=== PATIENT | female | born 1975 | race Two or more races ===

== ENCOUNTER 2021-06-03 16:32 | Emergency (ER) | payer MEDICAID ==
[~2021-06-03] VITALS: Ht 154.9 cm; Wt 77.1 kg
[2021-06-03 21:02] VITALS: BP 120/85
== END 2021-06-03 21:19 | disposition home or self-care (01) ==
LOC: ER 16:32
DX: R07.0 Pain in throat (principal); R13.10 Dysphagia, unspecified; T36.95XA Adverse effect of unspecified systemic antibiotic, initial encounter; E66.9 Obesity, unspecified; G43.909 Migraine, unspecified, not intractable, without status migrainosus; Z68.32 Body mass index [BMI] 32.0-32.9, adult; Y92.89 Other specified places as the place of occurrence of the external cause
CPT/HCPCS: 70490

== ENCOUNTER 2023-05-21 09:27 | Emergency (ER) | payer MEDICAID ==
[~2023-05-21] VITALS: Ht 154.9 cm; Wt 80.9 kg
[~2023-05-21 09:27] MED LIST: CYCL-837 PO; EPIN0.3I24 IJ
[2023-05-21 10:11] VITALS: PULSE 100; RESP 14; O2SAT 94
[2023-05-21 10:25] LABS: Basophils # (auto) 0.1 10 ^3/uL (0-0.2); Basophils % (auto) 0.5 % (0.0-2.0); Eosinophils # (auto) 0.1 10 ^3/uL (0-0.8); Eosinophils % (auto) 1.5 % (0.0-7.0); Hematocrit 47.3 % (36.0-46.0); Hemoglobin 15.7 g/dL (12.2-16.2); Lymphocytes # (auto) 2.5 10 ^3/uL (0.4-5.4); Lymphocytes % (auto) 26.4 % (10.0-50.0); Mean Corpuscular Hemoglobin 27.5 pg (28.0-32.0); Mean Corpuscular Hgb Conc. 33.3 g/dL (32.0-36.0); Mean Corpuscular Volume 82.7 fL (80.0-100.0); Monocytes # (auto) 0.6 10 ^3/uL (0-1.3); Monocytes % (auto) 6.2 % (0.0-12.0); Neutrophils # (auto) 6.1 10 ^3/uL (1.6-8.6); Neutrophils % (auto) 65.4 % (37.0-80.0); Red Blood Cells 5.72 10^6/uL (4.0-5.20); White Blood Cell 9.3 10^3/uL (4.4-10.8)
[2023-05-21 10:29] LABS: INR 1.04 (0.9-1.15); Partial Thromboplastin Time 29.8 SEC (24.5-34.5); Prothrombin Time 10.9 sec (9.3-11.8)
[2023-05-21 10:52] LABS: Alanine Aminotransferase 14 U/L (7-40); Albumin 4.8 g/dL (3.2-4.8); Alkaline Phosphatase 69 U/L (46-116); Anion Gap 7 (5-15); Aspartate Aminotransferase 18 U/L (13-40); BUN/Creatinine Ratio 10.3 (10.0-20.0); Blood Urea Nitrogen 11 mg/dL (9-23); Calcium 10.1 mg/dL (8.5-10.1); Carbon Dioxide 26 mmol/L (20-30); Chloride 103 mmol/L (98-107); Glucose 96 mg/dL (74-106); Potassium 3.8 mmol/L (3.5-5.1); Sodium 136 mmol/L (136-145)
[2023-05-21 10:53] LABS: Bilirubin, Total 0.6 mg/dL (0.2-1.0); Total Protein 7.9 g/dL (5.7-8.2)
[2023-05-21 11:26] LABS: Urine Bacteria NONE SEEN /hpf (None Seen); Urine Blood 3+ /uL (Negative); Urine Clarity Clear (Clear); Urine Color Yellow (Yellow); Urine Mucus FEW (None Seen); Urine Protein, UAD 1+ (Negative); Urine Specific Gravity 1.015 (1.001-1.035); Urine Urobilinogen Normal (Negative); Urine WBC 11 /hpf (0 - 5); Urine pH 5.5 (5.0-8.0)
[2023-05-21] MEDS ORDERED: NITR-87 PO (11:58)
[2023-05-21 12:00] VITALS: BP 110/79; PULSE 87; RESP 10; O2SAT 94
== END 2023-05-21 12:19 | disposition home or self-care (01) ==
LOC: ER 09:27
DX: N93.9 Abnormal uterine and vaginal bleeding, unspecified (principal); D25.9 Leiomyoma of uterus, unspecified; Z86.2 Personal history of diseases of the blood and blood-forming organs and certain disorders involving the immune mechanism; Z90.49 Acquired absence of other specified parts of digestive tract; Z79.899 Other long term (current) drug therapy; Z88.1 Allergy status to other antibiotic agents; Z88.8 Allergy status to other drugs, medicaments and biological substances
CPT/HCPCS: 36415; 76830; 76856; 80053; 81001; 85025; 85610; 85730; 86850; 86900; 86901

== ENCOUNTER 2023-08-07 14:08 | Emergency (ER) | payer MEDICAID ==
[~2023-08-07] VITALS: Ht 154.9 cm; Wt 77.5 kg
[~2023-08-07 14:08] MED LIST changes: +NITR-87 PO
[2023-08-07 14:21] VITALS: BP 154/73; PULSE 97; RESP 18; O2SAT 99
[2023-08-07 14:27] LABS: Basophils # (auto) 0.1 10 ^3/uL (0-0.2); Basophils % (auto) 0.7 % (0.0-2.0); Eosinophils # (auto) 0.1 10 ^3/uL (0-0.8); Eosinophils % (auto) 1.7 % (0.0-7.0); Hematocrit 44.4 % (36.0-46.0); Hemoglobin 14.5 g/dL (12.2-16.2); Lymphocytes # (auto) 2.1 10 ^3/uL (0.4-5.4); Lymphocytes % (auto) 23.8 % (10.0-50.0); Mean Corpuscular Hemoglobin 26.9 pg (28.0-32.0); Mean Corpuscular Hgb Conc. 32.7 g/dL (32.0-36.0); Mean Corpuscular Volume 82.4 fL (80.0-100.0); Monocytes # (auto) 0.5 10 ^3/uL (0-1.3); Monocytes % (auto) 5.5 % (0.0-12.0); Neutrophils % (auto) 68.3 % (37.0-80.0); Nucleated Red Blood Cells % 0.3 %; Red Blood Cells 5.39 10^6/uL (4.0-5.20); Red Cell Distribution Width 16.1 % (11.8-14.3); White Blood Cell 8.7 10^3/uL (4.4-10.8)
[2023-08-07 14:56] LABS: Alanine Aminotransferase 12 U/L (7-40); Albumin 4.5 g/dL (3.2-4.8); Alkaline Phosphatase 68 U/L (46-116); Anion Gap 7 (5-15); Aspartate Aminotransferase 14 U/L (13-40); BUN/Creatinine Ratio 10.5 (10.0-20.0); Bilirubin, Total 0.5 mg/dL (0.2-1.0); Blood Urea Nitrogen 13 mg/dL (9-23); Calcium 9.4 mg/dL (8.7-10.4); Carbon Dioxide 27 mmol/L (20-30); Chloride 105 mmol/L (98-107); Glucose 112 mg/dL (74-106); Potassium 3.9 mmol/L (3.5-5.1); Sodium 139 mmol/L (136-145); Total Protein 7.6 g/dL (5.7-8.2)
== END 2023-08-07 18:12 | disposition home or self-care (01) ==
LOC: ER 14:08
DX: R07.89 Other chest pain (principal); K21.9 Gastro-esophageal reflux disease without esophagitis; Z90.49 Acquired absence of other specified parts of digestive tract; Z98.51 Tubal ligation status; Z88.1 Allergy status to other antibiotic agents
CPT/HCPCS: 36415; 71045; 80053; 84484; 85025; 85379; 93005

== ENCOUNTER 2023-10-23 09:20 | Emergency (ER) | payer SELFPAY ==
[~2023-10-23] VITALS: Ht 154.9 cm; Wt 84.3 kg
[2023-10-23 10:21] LABS: Urine Bacteria None Seen /hpf (None Seen)
[2023-10-23 10:28] LABS: Urine Blood 2+ /uL (Negative); Urine Clarity Turbid (Clear); Urine Color Colorless (Yellow); Urine Mucus FEW (None Seen); Urine Protein, UAD 2+ (Negative); Urine Specific Gravity 1.015 (1.001-1.035); Urine Urobilinogen Normal (Negative); Urine WBC 537 /hpf (0 - 5); Urine WBC Clumps PRESENT /hpf (None Seen)
[2023-10-23] MEDS ORDERED: KETOROLAC TROMETH 60MG/2ML VIAL IM ONE (11:00)
[2023-10-23] MEDS: cefTRIAXone SOD 1,000 MG VL IM ONE (11:20)
[2023-10-23] MEDS: HYDROcodone-ACET 10/325MG TAB PO ONE (11:21)
[2023-10-23 11:43] VITALS: BP 120/65; PULSE 102; RESP 18; TEMP 98; O2SAT 95
[2023-10-23] MEDS ORDERED: TRAM-626 PO (11:49)
[2023-10-23] MEDS ORDERED: BACDST PO (11:49)
== END 2023-10-23 11:54 | disposition home or self-care (01) ==
LOC: ER 09:20
DX: N39.0 Urinary tract infection, site not specified (principal); Z30.431 Encounter for routine checking of intrauterine contraceptive device; K21.9 Gastro-esophageal reflux disease without esophagitis; Z86.2 Personal history of diseases of the blood and blood-forming organs and certain disorders involving the immune mechanism; Z90.49 Acquired absence of other specified parts of digestive tract; Z79.899 Other long term (current) drug therapy; Z88.1 Allergy status to other antibiotic agents; Z88.8 Allergy status to other drugs, medicaments and biological substances
CPT/HCPCS: 72170; 81001; 96372; 99284; J0696

== ENCOUNTER 2023-12-31 18:48 | Emergency (ER) | payer MEDICAID, OTHER ==
[~2023-12-31] VITALS: Ht 154.9 cm; Wt 84.2 kg
[~2023-12-31 18:48] MED LIST changes: +BACDST PO; +TRAM-626 PO
[2023-12-31 20:23] LABS: Basophils # (auto) 0 10 ^3/uL (0-0.2); Basophils % (auto) 0.5 % (0.0-2.0); Eosinophils # (auto) 0.2 10 ^3/uL (0-0.8); Eosinophils % (auto) 2.4 % (0.0-7.0); Lymphocytes # (auto) 2.2 10 ^3/uL (0.4-5.4); Lymphocytes % (auto) 27.5 % (10.0-50.0); Mean Corpuscular Hemoglobin 27.2 pg (28.0-32.0); Mean Corpuscular Hgb Conc. 33.2 g/dL (32.0-36.0); Mean Corpuscular Volume 81.8 fL (80.0-100.0); Monocytes # (auto) 0.5 10 ^3/uL (0-1.3); Monocytes % (auto) 6.7 % (0.0-12.0); Neutrophils % (auto) 62.9 % (37.0-80.0); Nucleated Red Blood Cells % 0.1 %; Red Blood Cells 5.14 10^6/uL (4.0-5.20); Red Cell Distribution Width 16.1 % (11.8-14.3); White Blood Cell 7.9 10^3/uL (4.4-10.8)
[2023-12-31 20:36] LABS: Urine Bacteria FEW /hpf (None Seen); Urine Blood TRACE /uL (Negative); Urine Clarity Clear (Clear); Urine Color Light-Yellow (Yellow); Urine Hyaline Cast FEW /lpf (0 - 2); Urine Mucus FEW (None Seen); Urine Protein, UAD TRACE (Negative); Urine Specific Gravity 1.013 (1.001-1.035); Urine Urobilinogen Normal (Negative); Urine WBC 2 /hpf (0 - 5)
[2023-12-31 20:45] LABS: Alanine Aminotransferase 19 U/L (7-40); Albumin 4.3 g/dL (3.2-4.8); Alkaline Phosphatase 77 U/L (46-116); Anion Gap 7 (5-15); Aspartate Aminotransferase 12 U/L (13-40); BUN/Creatinine Ratio 12.4 (10.0-20.0); Bilirubin, Total 0.4 mg/dL (0.2-1.0); Blood Urea Nitrogen 14 mg/dL (9-23); Calcium 9.7 mg/dL (8.7-10.4); Carbon Dioxide 27 mmol/L (20-30); Chloride 105 mmol/L (98-107); Glucose 94 mg/dL (74-106); Sodium 139 mmol/L (136-145); Total Protein 6.8 g/dL (5.7-8.2)
[2023-12-31] MEDS: FAMOTIDINE 20 MG TAB PO ONE (21:15)
[2023-12-31] MEDS: MAALOX PLUS or MAALOX 30 ML PO ONE (21:15)
[2023-12-31] MEDS: ACETAMINOPHEN 325 MG TAB PO ONE (21:21)
[2023-12-31 21:23] VITALS: BP 116/80; PULSE 83; RESP 18; TEMP 98.5; O2SAT 98
== END 2023-12-31 23:41 | disposition home or self-care (01) ==
LOC: ER 18:48
DX: R07.89 Other chest pain (principal); R10.11 Right upper quadrant pain; M54.9 Dorsalgia, unspecified; F41.9 Anxiety disorder, unspecified; K21.9 Gastro-esophageal reflux disease without esophagitis; Z88.1 Allergy status to other antibiotic agents; Z88.6 Allergy status to analgesic agent; Z90.49 Acquired absence of other specified parts of digestive tract; Z98.51 Tubal ligation status
CPT/HCPCS: 36415; 71045; 80053; 81001; 84484; 85025; 93005

== ENCOUNTER 2024-05-01 10:47 | Emergency (ER) | payer SELFPAY ==
[~2024-05-01] VITALS: Ht 154.9 cm; Wt 83.7 kg
[2024-05-01 11:05] LABS: Basophils # (auto) 0.1 10 ^3/uL (0-0.2); Basophils % (auto) 0.9 % (0.0-2.0); Eosinophils # (auto) 0.2 10 ^3/uL (0-0.8); Eosinophils % (auto) 1.9 % (0.0-7.0); Hematocrit 42.6 % (36.0-46.0); Hemoglobin 14.2 g/dL (12.2-16.2); Lymphocytes # (auto) 2.3 10 ^3/uL (0.4-5.4); Lymphocytes % (auto) 26.4 % (10.0-50.0); Mean Corpuscular Hemoglobin 26.9 pg (28.0-32.0); Mean Corpuscular Hgb Conc. 33.3 g/dL (32.0-36.0); Mean Corpuscular Volume 80.7 fL (80.0-100.0); Monocytes # (auto) 0.6 10 ^3/uL (0-1.3); Neutrophils # (auto) 5.5 10 ^3/uL (1.6-8.6); Neutrophils % (auto) 63.8 % (37.0-80.0); Platelet Count (auto) 331 10^3/uL (140-450); Red Blood Cells 5.28 10^6/uL (4.0-5.20); Red Cell Distribution Width 15.6 % (11.8-14.3); White Blood Cell 8.6 10^3/uL (4.4-10.8)
[2024-05-01] MEDS: ASPirin 81 mg TAB PO ONE (11:09)
--- NOTE | 2024-05-01 11:10 | ED.PDOC ---
HPI Comments 48F presents to the ER w/ no prior Hx associated to the c/c of CP. Pt reports on having CP which radiated to the left arm last night. Pt reports the CP to have been consistent until today wit the radiating pain being to the middle of the back. Pt states the CP to be sharp as well as having N/ Dizziness. Pt notes on having a pain type of a 6/10 and took Tylenol last night as well. PMHx of Anemia, Anxiety and GERD. SHx of Cholecystectomy, BTL and Tubal Ligation. Family Hx of Cancer, DM and Heart [place]. Denies chills, fever, /V/D, SOB, or other associated symptoms, modifiers, or recent injuries at this time. Chief Complaint: Chest Pain Time Seen by MD: 11:00 Primary Care Provider: SEDA Reviewed Notes: Nurses Notes, Medications, Allergies Allergies: Coded Allergies: Amoxicillin (Verified Allergy, Unknown, 04/14/23) Azithromycin (Verified Allergy, Unknown, 12/31/23) Ketorolac Tromethamine (Verified Allergy, Unknown, 04/14/23) Home Meds Active Scripts Tramadol HCl (Tramadol HCl) 50 Mg Tab, 50 MG PO TID, #20 TAB Prov:JESSICA URIAS 10/23/23 Sulfamethoxazole W/Trimethopri (Bactrim Ds Tablet) 1 Tab Tb, 1 TAB PO BID for 10 Days, #20 TAB Prov:JESSICA URIAS 10/23/23 Nitrofurantoin Monohydrate Mac (Macrobid) 100 Mg Cap, 100 MG PO BID for 7 Days, #14 CAP Prov:HERO JACOBO MD 05/21/23 Epinephrine (Epinephrine) 0.3 Mg/0.3 Ml Inj, 0.3 MG IJ ONCE PRN, #2 INJ 0 Refills Prov:BERLIN ARECHIGA MD 10/30/21 Cyclobenzaprine Hcl (Cyclobenzaprine Hcl) 5 Mg Tab, 1 TAB PO QPM, #14 TAB 0 Refills Prov:JOSE ALEJANDRO PARADA 08/28/21 Information Source: Patient Mode of Arrival: Ambulatory Severity: Moderate Timing: Hours Duration: Since onset, Hours Prehospital treatment: None Location: Substernal Radiation: Back Quality: Sharp Onset: At Rest Cardiac Risk Factors: Family History PE Risk Factors: None History of: Similar pain in past Associated Signs and Symptoms: Back Pain Past Medical History PAST MEDICAL HISTORY: Anemia, Anxiety, GERD Surgical History: BTL, Cholecystectomy, Tubal Ligation 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 Family History Family History: Reviewed,noncontributory to illness, Family hx of DM, Family hx of Cancer, Family hx of heart [place] Social History Smoker: Non-Smoker Alcohol: Denies ETOH Use Drugs: Denies Drug Use Lives In: Home Constitutional: denies: chills, diaphoresis, fatigue, fever, malaise, sweats, weakness, others EENTM: denies: blurred vision, double vision, ear bleeding, ear discharge, ear drainage, ear pain, ear ringing, eye pain, eye redness, hearing loss, mouth pain, mouth swelling, nasal discharge, nose bleeding, nose congestion, nose pain, photophobia, tearing, throat pain, throat swelling, voice changes, others Respiratory: denies: cough, hemoptysis, orthopnea, SOB at rest, shortness of breath, SOB with excertion, stridor, wheezing, others Cardiovascular: reports: chest pain; denies: dizzy spells, diaphoresis, Dyspnea on exertion, edema, irregular heart beat, left arm pain, lightheadedness, palpitations, PND, syncope, others Gastrointestinal: denies: abdomen distended, abdominal pain, blood streaked bowels, constipated, diarrhea, dysphagia, difficulty swallowing, hematemesis, melena, nausea, poor appetite, poor fluid intake, rectal bleeding, rectal pain, vomiting, others Genitourinary: denies: abnormal vagina bleeding, burning, dyspareunia, dysuria, flank pain, frequency, hematuria, incontinence, pain, , vagina discharge, urgency, others Neurological: denies: dizziness, fainting, headache, left sided numbness, left sided weakness, numbness, paresthesia, pre-existing deficit, right sided numbness, right sided weakness, seizure, speech problems, tingling, tremors, weakness, others Musculoskeletal: reports: back pain; denies: gout, joint pain, joint swelling, muscle pain, muscle stiffness, neck pain, others Integumetry: denies: bruises, change in color, change in hair/nails, dryness, laceration, lesions, lumps, rash, wounds, others Allergic/Immunocompromised: denies: Difficulty Healing, Frequent Infections, Hives, Itching, others Hematologic/Lymphatic: denies: anemia, blood clots, easy bleeding, easy bruising, swollen glands, others Endocrine: denies: excessive hunger, excessive sweating, excessive thirst, excessive urination, flushing, intolerance to cold, intolerance to heat, unex plained weight gain, unexplained weight loss, others Psychiatric: denies: anxiety, bipolar disorder, depression, hopeless, panic disorder, schizophrenia, sleepless, suicidal, others All Other Systems: Reviewed and Negative Physical Exam General Appearance: No Apparent Distress HEENT: Normal ENT Inspection, Pharynx Normal, TMs Normal Neck: Full Range of Motion, Non-Tender, Normal, Normal Inspection Respiratory: Chest Non-Tender, Lungs Clear, No Accessory Muscle Use, No Respiratory Distress, Normal Breath Sounds Cardiovascular: No Edema, No JVD, No Murmur, No Gallop, Tachycardia Breast Exam: Deferred Gastrointestinal: No Organomegaly, Non Tender, No Pulsatile Mass, Normal Bowel Sounds, Soft Genitalia: Deferred Pelvic: Deferred Rectal: Deferred Extremities: No calf tenderness, Normal capillary refill, Normal inspection, Normal range of motion, Non-tender, No pedal edema Musculoskeletal : Apperance: Normal Neurologic: Alert, craniologist II-XII nml as Tested, No Motor Deficits, Normal Affect, Normal Mood, No Sensory Deficits Cerebellar Function: Normal Reflexes: Normal Skin: Dry, Normal Color, Warm Lymphatic: No Adenopathy EKG EKG : Pulse Rate (adult): 103 Helper: RAD Cardiac Rhythm: ST Block: None Hypertrophy: None ST: Normal Was a procedure done? Was a procedure done?: No CP Differential Dx Differential Diagnosis: Angina, RI Differential Diagnosis: CHF Differential Diagnosis: Pericarditis X-Ray, Labs, Meds, VS Vital Signs Date Time Temp Pulse Resp B/P (MAP) Pulse Ox O2 Delivery O2 Flow Rate FiO2 05/01/24 11:38 99 05/01/24 11:11 108 18 98 Room Air* 0 21 05/01/24 11:10 98.9 108 18 114/85 (95) 97 98.9 05/01/24 11:10 103 05/01/24 11:04 99.8 129 16 70/6 (27) 99 05/01/24 10:52 103 Lab Test 05/01/24 11:30 05/01/24 10:53 05/01/24 10:49 Range/Units Troponin I High Sensitivity < 3 L < 3 L </=34 ng/L White Blood Count 8.6 4.4-10.8 10^3/uL Red Blood Count 5.28 H 4.0-5.20 10^6/uL Hemoglobin 14.2 12.2-16.2 g/dL Hematocrit 42.6 36.0-46.0 % Mean Corpuscular Volume 80.7 80.0-100.0 fL Mean Corpuscular Hemoglobin 26.9 L 28.0-32.0 pg Mean Corpuscular Hemoglobin Concent 33.3 32.0-36.0 g/dL Red Cell Distribution Width 15.6 H 11.8-14.3 % Platelet Count 331 140-450 10^3/uL Mean Platelet Volume 8.1 6.9-10.8 fL Neutrophils (%) (Auto) 63.8 37.0-80.0 % Lymphocytes (%) (Auto) 26.4 10.0-50.0 % Monocytes (%) (Auto) 7.0 0.0-12.0 % Eosinophils (%) (Auto) 1.9 0.0-7.0 % Basophils (%) (Auto) 0.9 0.0-2.0 % Neutrophils # (Auto) 5.5 1.6-8.6 10 ^3/uL Lymphocytes # (Auto) 2.3 0.4-5.4 10 ^3/uL Monocytes # (Auto) 0.6 0-1.3 10 ^3/uL Eosinophils # (Auto) 0.2 0-0.8 10 ^3/uL Basophils # (Auto) 0.1 0-0.2 10 ^3/uL Nucleated Red Blood Cells 0.0 % D-Dimer, Quantitative 0.33 0.0-0.49 mg/L FEU Sodium Level 140 136-145 mmol/L Potassium Level 3.7 3.5-5.1 mmol/L Chloride Level 106 98-107 mmol/L Carbon Dioxide Level 26 20-31 mmol/L Anion Gap 8 5-15 Blood Urea Nitrogen 10 9-23 mg/dL Creatinine 1.15 H 0.550-1.02 mg/dL Glomerular Filtration Rate Calc 59 >90 mL/min BUN/Creatinine Ratio 8.7 L 10.0-20.0 Serum Glucose 127 H 74-106 mg/dL Calcium Level 9.9 8.7-10.4 mg/dL Total Bilirubin 0.5 0.2-1.0 mg/dL Aspartate Amino Transferase (AST) 13 13-40 U/L Alanine Aminotransferase (ALT) 16 7-40 U/L Alkaline Phosphatase 85 46-116 U/L Total Protein 7.5 5.7-8.2 g/dL Albumin 4.3 3.2-4.8 g/dL Urine Color Light-yellow Yellow Urine Clarity Clear Clear Urine pH 5.5 5.0-9.0 Urine Specific [place] 1.015 1.001-1.035 Urine Protein 1+ H Negative Urine Ketones Negative Negative Urine Blood 1+ H Negative /uL Urine Nitrite Negative Negative Urine Bilirubin Negative Negative Urine Urobilinogen Normal Negative mg/dL Urine Leukocyte Esterase Negative Negative /uL Urine RBC 2 0 - 4 /hpf Urine WBC 2 0 - 5 /hpf Urine Squamous Epithelial Cells Few <5 /hpf Urine Bacteria None seen None Seen /hpf Urine Glucose Normal Normal mg/dL Current Medications Medications (Trade) Dose Ordered Sig/Blade Route Start Time Stop Time Status Last Admin Aspirin 162 mg ONCE ONCE PO 05/01/24 11:15 05/01/24 11:16 DC 05/01/24 11:09 The patient was given aspirin 162 mg by mouth The chest x-ray is negative The urine test is negative The CBC and chemistry panel are within normal limits We did repeat the EKG with no change at this time The patient's troponin level x2 is negative The D-dimer is negative The patient was being discharged and will follow up with the primary care doctor The patient will return to the emergency department's the condition worsens. Images Reviewed?: Images reviewed and evaluated by me Time of 1ST Reevaluation: 11:30 Reevaluation 1ST: Unchanged Patient Education/Counseling: Diagnosis, Treatment, Prognosis, Need For Follow Up Family Education/Counseling: No Family Present Departure 1 Departure Time of Disposition: 12:15 Impression: Primary Impression: Musculoskeletal chest pain Disposition: 01 HOME / SELF CARE / HOMELESS Condition: Fair Discharged With: Self Critical Care Note Critical Care Time?: No Stability Stability form required: No Heart Score Heart Score: Heart Score Response (Comments) Value History N/A 0 EKG N/A 0 Age N/A 0 Risk Factors N/A 0 Troponin N/A 0 Total 0 I personally scribed for ODALIS,HERO B MD ([email or web address]) on 05/01/24 at 11:10. Electronically submitted by Jimbo Casey ([email or web address]). HERO JACOBO MD May 01, 2024 11:10
[2024-05-01 11:11] VITALS: PULSE 108; RESP 18; O2SAT 98
[2024-05-01 11:14] LABS: Urine Bacteria None Seen /hpf (None Seen); Urine Blood 1+ /uL (Negative); Urine Clarity Clear (Clear); Urine Color Light-Yellow (Yellow); Urine Protein, UAD 1+ (Negative); Urine Specific Gravity 1.015 (1.001-1.035); Urine Urobilinogen Normal (Negative); Urine WBC 2 /hpf (0 - 5); Urine pH 5.5 (5.0-9.0)
[2024-05-01 11:24] LABS: Alanine Aminotransferase 16 U/L (7-40); Albumin 4.3 g/dL (3.2-4.8); Alkaline Phosphatase 85 U/L (46-116); Anion Gap 8 (5-15); Aspartate Aminotransferase 13 U/L (13-40); BUN/Creatinine Ratio 8.7 (10.0-20.0); Blood Urea Nitrogen 10 mg/dL (9-23); Calcium 9.9 mg/dL (8.7-10.4); Carbon Dioxide 26 mmol/L (20-31); Chloride 106 mmol/L (98-107); Glucose 127 mg/dL (74-106); Potassium 3.7 mmol/L (3.5-5.1); Sodium 140 mmol/L (136-145)
[2024-05-01 11:25] LABS: Bilirubin, Total 0.5 mg/dL (0.2-1.0); Total Protein 7.5 g/dL (5.7-8.2)
--- NOTE | 2024-05-01 11:39 | ECG ---
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
--- NOTE | 2024-05-01 12:13 | DVH ---
CHEST RADIOGRAPH Indication:CP Technique: Single frontal view of the chest was obtained Comparison: XY CHEST PORTABLE on DOS: 12/31/23, XY CHEST PORTABLE on DOS: 08/07/23 FINDINGS: Lines and Tubes: None Lungs: No focal consolidation. Pleura: No effusion. No pneumothorax. Cardiomediastinal contours: Unremarkable Bones: No acute osseous abnormality. IMPRESSION: No acute cardiopulmonary disease.
[2024-05-01] MEDS: MECLIZINE HCL 25 MG TAB PO ONE (13:16)
--- NOTE | 2024-05-01 13:50 | DVH ---
CLINICAL INFORMATION: 48 years old, Female; dizziness. TECHNIQUE: Axial imaging was obtained through the brain without contrast. Coronal and sagittal refor matted images were obtained, reviewed, and stored. Images were reviewed in brain and bone windows. A ll CT scans at this medical facility are performed using dose modulation techniques as appropriate to a performed exam including the following: Automated exposure control was utilized; adjustment of the MA and/or KV according to patient size; and use of iterative reconstruction technique. CTDIvol = 53 mGy DLP = 863.9 mGy-cm COMPARISON: NECK WITHOUT CONTRAST on DOS: 06/03/21 FINDINGS: There is no acute intracranial hemorrhage or extraaxial fluid collection. No mass effect o r midline shift. The ventricles and sulci are within normal limits in size for age. Basal cisterns a re patent. The calvarium is unremarkable. Paranasal sinuses and mastoid air cells are clear. IMPRESSION: No CT evidence of acute intracranial abnormality.
[2024-05-01 14:02] VITALS: BP 116/80; PULSE 97; RESP 18; TEMP 98.2; O2SAT 97
--- NOTE | 2024-05-03 12:44 | ECG ---
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
== END 2024-05-01 14:01 | disposition home or self-care (01) ==
LOC: ER 10:47
DX: R07.89 Other chest pain (principal); F41.9 Anxiety disorder, unspecified; K21.9 Gastro-esophageal reflux disease without esophagitis; Z90.49 Acquired absence of other specified parts of digestive tract; Z98.51 Tubal ligation status; Z98.890 Other specified postprocedural states; Z79.899 Other long term (current) drug therapy; Z88.0 Allergy status to penicillin; Z88.1 Allergy status to other antibiotic agents
CPT/HCPCS: 36415; 70450; 71045; 80053; 81001; 84484; 85025; 85379; 93005; 99285; J8597

== ENCOUNTER 2024-07-18 08:54 | Emergency (ER) | payer OTHER ==
--- NOTE | 2024-07-18 10:00 | ED.PDOC ---
HPI Comments 48 year old female presents to the ED with a chief complaint of chest pain onset 2 days. Patient states she began experiencing chest pain 2 days ago, sharp and heavy sensation that radiates to RT arm, RT shoulder, back and neck. She also experienced 2 episodes of nausea/vomiting today. Upon ED arrival, HR 115, BP 121/91, O2 sat 94% RA. PMHx of anemia, anxiety, GERD, autoimmune disease. Denies shortness of breath, cough, congestion, dizziness, headache, blurry vision. No o ther symptoms or modifying factors present at this time. Time Seen by MD: 09:21 Primary Care Provider: NONE Reviewed Notes: Medications, Allergies Allergies: Coded Allergies: Amoxicillin (Verified Allergy, Unknown, 04/14/23) Azithromycin (Verified Allergy, Unknown, 12/31/23) Ketorolac Tromethamine (Verified Allergy, Unknown, 04/14/23) Home Meds Active Scripts Tramadol HCl (Tramadol HCl) 50 Mg Tab, 50 MG PO TID, #20 TAB Prov:JESSICA URIAS 10/23/23 Sulfamethoxazole W/Trimethopri (Bactrim Ds Tablet) 1 Tab Tb, 1 TAB PO BID for 10 Days, #20 TAB Prov:JESSICA URIAS 10/23/23 Nitrofurantoin Monohydrate Mac (Macrobid) 100 Mg Cap, 100 MG PO BID for 7 Days, #14 CAP Prov:HERO JACOBO MD 05/21/23 Epinephrine (Epinephrine) 0.3 Mg/0.3 Ml Inj, 0.3 MG IJ ONCE PRN, #2 INJ 0 Refills Prov:BERLIN ARECHIGA MD 10/30/21 Cyclobenzaprine Hcl (Cyclobenzaprine Hcl) 5 Mg Tab, 1 TAB PO QPM, #14 TAB 0 Refills Prov:JOSE ALEJANDRO PARADA 08/28/21 Information Source: Patient Mode of Arrival: Ambulatory Severity: Moderate Timing: Days Duration: Since onset Prehospital treatment: None Location: Chest (L) Radiation: Back, Neck, Shoulder (R), Arm (R) Quality: Sharp, Heavy Cardiac Risk Factors: None PE Risk Factors: None History of: None Past Medical History PAST MEDICAL HISTORY: Anemia, Anxiety, GERD Past Medical History (Other): autoimmune diease Surgical History: BTL, Cholecystectomy, Tubal Ligation 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 STORE History Family History Family History: Reviewed,noncontributory to illness, Family hx of DM, Family hx of Cancer, Family hx of heart [place] Social History Smoker: Non-Smoker Alcohol: Denies ETOH Use Drugs: Denies Drug Use Lives In: Home Constitutional: denies: chills, diaphoresis, fatigue, fever, malaise, sweats, weakness, others EENTM: denies: blurred vision, double vision, ear bleeding, ear discharge, ear drainage, ear pain, ear ringing, eye pain, eye redness, hearing loss, mouth pain, mouth swelling, nasal discharge, nose bleeding, nose congestion, nose pain, photophobia, tearing, throat pain, throat swelling, voice changes, others Respiratory: denies: cough, hemoptysis, orthopnea, SOB at rest, shortness of breath, SOB with excertion, stridor, wheezing, others Cardiovascular: reports: chest pain; denies: dizzy spells, diaphoresis, Dyspnea on exertion, edema, irregular heart beat, left arm pain, lightheadedness, palpitations, PND, syncope, others Gastrointestinal: denies: abdomen distended, abdominal pain, blood streaked bowels, constipated, diarrhea, dysphagia, difficulty swallowing, hematemesis, melena, nausea, poor appetite, poor fluid intake, rectal bleeding, rectal pain, vomiting, others Genitourinary: denies: abnormal vagina bleeding, burning, dyspareunia, dysuria, flank pain, frequency, hematuria, incontinence, pain, , vagina discharge, urgency, others Neurological: denies: dizziness, fainting, headache, left sided numbness, left sided weakness, numbness, paresthesia, pre-existing deficit, right sided numbness, right sided weakness, seizure, speech problems, tingling, tremors, weakness, others Musculoskeletal: reports: back pain, neck pain, others (RT arm, RT shoulder ); denies: gout, joint pain, joint swelling, muscle pain, muscle stiffness Integumetry: denies: bruises, change in color, change in hair/nails, dryness, laceration, lesions, lumps, rash, wounds, others Allergic/Immunocompromised: denies: Difficulty Healing, Frequent Infections, Hives, Itching, others Hematologic/Lymphatic: denies: anemia, blood clots, easy bleeding, easy bruising, swollen glands, others Endocrine: denies: excessive hunger, excessive sweating, excessive thirst, excessive urination, flushing, intolerance to cold, intolerance to heat, unexplained weight gain, unexplained weight loss, others Psychiatric: denies: anxiety, bipolar disorder, depression, hopeless, panic disorder, schizophrenia, sleepless, suicidal, others All Other Systems: Reviewed and Negative Physical Exam General Appearance: Moderate Distress HEENT: Normal ENT Inspection, Pharynx Normal, TMs Normal Neck: Full Range of Motion, Non-Tender, Normal, Normal Inspection Respiratory: Chest Non-Tender, Lungs Clear, No Accessory Muscle Use, No Respi ratory Distress, Normal Breath Sounds Cardiovascular: No Edema, No JVD, No Murmur, No Gallop, Normal Peripheral Pulses, Regular Rate/Rhythm Breast Exam: Deferred Gastrointestinal: No Organomegaly, Non Tender, No Pulsatile Mass, Normal Bowel Sounds, Soft Genitalia: Deferred Pelvic: Deferred Rectal: Deferred Extremities: No calf tenderness, Normal capillary refill, Normal inspection, Normal range of motion, Non-tender, No pedal edema Musculoskeletal : Apperance: Normal Neurologic: Alert, 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 Was a procedure done?: No CP Differential Dx Differential Diagnosis: A-fib, A-Flutter, Angina, Anxiety / Panic Attack, Atrial Dysrhythmia, Electrolyte Disorder X-Ray, Labs, Meds, VS Patient alert. Complaining of epigastric pain. History of gastritis. Vitals stable. Abdomen is soft nontender. Reviewed her history. Explained to the patient. Continue monitoring. Time of 1ST Reevaluation: 09:51 Reevaluation 1ST: Unchanged Patient Education/Counseling: Diagnosis, Treatment, Prognosis Family Education/Counseling: No Family Present Departure 1 Departure Time of Disposition: 10:44 Impression: Primary Impression: Nonspecific colitis Disposition: ADMITTED INPATIENT Admit to: Med Surg Condition: Guarded Critical Care Note Critical Care Time?: No Stability Stability form required: No Heart Score Heart Score: Heart Score Response (Comments) Value History N/A 0 EKG N/A 0 Age N/A 0 Risk Factors N/A 0 Troponin N/A 0 Total 0 I personally scribed for MUSTAPHA HASSAN MD ([email or web address]) on 07/18/24 at 10:00. Electronically submitted by Elizabeth Lebron ([email or web address]). MUSTAPHA HASSAN MD Jul 18, 2024 10:00
== END 2024-07-18 09:31 | disposition left against medical advice (07) ==
LOC: ER 08:54
DX: K52.9 Noninfective gastroenteritis and colitis, unspecified (principal); K21.9 Gastro-esophageal reflux disease without esophagitis; Z90.49 Acquired absence of other specified parts of digestive tract; Z98.51 Tubal ligation status; Z98.890 Other specified postprocedural states; Z79.899 Other long term (current) drug therapy; Z88.0 Allergy status to penicillin; Z88.1 Allergy status to other antibiotic agents

== ENCOUNTER 2024-10-21 11:02 | Inpatient (IN) | payer OTHER ==
[~2024-10-21] VITALS: Ht 154.9 cm; Wt 94.7 kg
--- NOTE | 2024-10-21 11:29 | ED.PDOC ---
History of Present Illness HPI Comments 48F BIBA w/ prior MHx of GERD, Fibromyalgia, Fatty Liver, Home O2 as needed, Anemia, Anxiety; SHx of Cholecystectomy, BTL, Tubal Ligation, Tonsillectomy and the c/c of CP/SOB. Pt reports of the SOB starting last night and the pt using her home O2. This morning the pt started to have a 7/10 left sided CP which radiated to the back making the avila a total of an 8/10. Before EMS arrived on scene the pt took aspirin, for the CP, and that the pt had an O2 of 87% off of O2 but it goes up to 97 on O2. Denies chills, fever, N/V/D, or other associated symptom's, modifiers, or recent injuries or sick contact at this time. Chief Complaint: Chest Pain Time Seen by MD: 11:00 Primary Care Provider: NONE Reviewed Notes: Nurses Notes, Biochemistry Specialist Notes, Medications, Allergies Allergies: Coded Allergies: Amoxicillin (Verified Allergy, Unknown, 04/14/23) Azithromycin (Verified Allergy, Unknown, 12/31/23) Ketorolac Tromethamine (Verified Allergy, Unknown, 04/14/23) Home Meds Active Scripts Tramadol HCl (Tramadol HCl) 50 Mg Tab, 50 MG PO TID, #20 TAB Prov:JESSICA URIAS 10/23/23 Sulfamethoxazole W/Trimethopri (Bactrim Ds Tablet) 1 Tab Tb, 1 TAB PO BID for 10 Days, #20 TAB Prov:JESSICA URIAS 10/23/23 Nitrofurantoin Monohydrate Mac (Macrobid) 100 Mg Cap, 100 MG PO BID for 7 Days, #14 CAP Prov:HERO JACOBO MD 05/21/23 Epinephrine (Epinephrine) 0.3 Mg/0.3 Ml Inj, 0.3 MG IJ ONCE PRN, #2 INJ 0 Refills Prov:BERLIN ARECHIGA MD 10/30/21 Cyclobenzaprine Hcl (Cyclobenzaprine Hcl) 5 Mg Tab, 1 TAB PO QPM, #14 TAB 0 Refills Prov:JOSE ALEJANDRO PARADA 08/28/21 Information Source: Patient, Emergency Med Personnel Mode of Arrival: EMS Severity: Moderate Timing: Hours Duration: Since onset, Hours Prehospital treatment: None Past Medical History PAST MEDICAL HISTORY: Anemia, Anxiety, GERD Past Medical History (Other): Fatty Liver, Fibromyalgia, Home O2 as needed Surgical History: BTL, Cholecystectomy, Tonsillectomy, Tubal Ligation 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: No Pertinent MVA STILL 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 Family History Family History: Reviewed,noncontributory to illness, Family hx of Cancer, Family hx of heart gunnar Social History Smoker: Non-Smoker Alcohol: Denies ETOH Use Drugs: Denies Drug Use Lives In: Home Constitutional: denies: chills, diaphoresis, fatigue, fever, malaise, sweats, weakness, others EENTM: denies: blurred vision, double vision, ear bleeding, ear discharge, ear drainage, ear pain, ear ringing, eye pain, eye redness, hearing loss, mouth pain, mouth swelling, nasal discharge, nose bleeding, nose congestion, nose pain, photophobia, tearing, throat pain, throat swelling, voice changes, others Respiratory: reports: shortness of breath; denies: cough, hemoptysis, orthopnea, SOB at rest, SOB with excertion, stridor, wheezing, others Cardiovascular: reports: chest pain; denies: dizzy spells, diaphoresis, Dyspnea on exertion, edema, irregular heart beat, left arm pain, lightheadedness, palpitations, PND, syncope, others Gastrointestinal: denies: abdomen distended, abdominal pain, blood streaked bowels, constipated, diarrhea, dysphagia, difficulty swallowing, hematemesis, melena, nausea, poor appetite, poor fluid intake, rectal bleeding, rectal pain, vomiting, others Genitourinary: denies: abnormal vagina bleeding, burning, dyspareunia, dysuria, flank pain, frequency, hematuria, incontinence, pain, , vagina discharge, urgency, others Neurological: reports: dizziness; denies: fainting, headache, left sided numbness, left sided weakness, numbness, paresthesia, pre-existing deficit, right sided numbness, right sided weakness, seizure, speech problems, tingling, tremors, weakness, others Musculoskeletal: reports: back pain; denies: gout, joint pain, joint swelling, muscle pain, muscle stiffness, neck pain, others Integumetry: denies: bruises, change in color, change in hair/nails, dryness, laceration, lesions, lumps, rash, wounds, others Allergic/Immunocompromised: denies: Difficulty Healing, Frequent Infections, Hives, Itching, others Hematologic/Lymphatic: denies: anemia, blood clots, easy bleeding, easy bruising, swollen glands, others Endocrine: denies: excessive hunger, excessive sweating, excessive thirst, excessive urination, flushing, intolerance to cold, intolerance to heat, unexplained weight gain, unexplained weight loss, others Psychiatric: denies: anxiety, bipolar disorder, depression, hopeless, panic disorder, schizophrenia, sleepless, suicidal, others All Other Systems: Reviewed and Negative Physical Exam General Appearance: Moderate Distress HEENT: Normal ENT Inspection, Pharynx Normal, TMs Normal Neck: Full Range of Motion, Non-Tender, Normal, Normal Inspection Respiratory: Chest Non-Tender, Lungs Clear, No Accessory Muscle Use, No Respiratory Distress, Normal Breath Sounds Cardiovascular: No Edema, No JVD, No Murmur, No Gallop, Normal Peripheral Pulses, Regular Rate/Rhythm Breast Exam: Deferred Gastrointestinal: No Organomegaly, Non Tender, No Pulsatile Mass, Normal Bowel Sounds, Soft Genitalia: Deferred Pelvic: Deferred Rectal: Deferred Extremities: No calf tenderness, Normal capillary refill, Normal inspection, Normal range of motion, Non-tender, No pedal edema Musculoskeletal : Apperance: Normal Neurologic: Alert, check services clerk II-XII nml as Tested, No Motor Deficits, Normal Affect, Normal Mood, No Sensory Deficits Cerebellar Function: Normal Reflexes: Normal Skin: Dry, Normal Color, Warm Lymphatic: No Adenopathy Was a procedure done? Was a procedure done?: No EKG EKG : Pulse Rate (adult): 64 [place]: Normal Cardiac Rhythm: NSR Block: None ST: Nonsp Differential Dx Considerations may include: Acute chest pain, ACS, [place] X-Ray, Labs, Meds, VS Vital Signs Date Time Temp Pulse Resp B/P (MAP) Pulse Ox O2 Delivery O2 Flow Rate FiO2 10/21/24 14:34 80 18 134/89 (104) 99 10/21/24 12:15 76 16 96 Nasal Cannula* 2 28 10/21/24 12:15 98.3 76 16 118/79 (92) 96 98.3 10/21/24 12:05 85 10/21/24 11:14 97.8 68 17 122/81 (95) 98 97.8 10/21/24 11:02 64 Lab Test 10/21/24 14:20 10/21/24 12:53 10/21/24 11:22 Range/Units Urine Color Light-yellow Yellow Urine Clarity Turbid H Clear Urine pH 5.5 5.0-9.0 Urine Specific [place] 1.014 1.001-1.035 Urine Protein 1+ H Negative Urine Ketones Trace Negative Urine Blood Trace H Negative /uL Urine Nitrite Negative Negative Urine Bilirubin Negative Negative Urine Urobilinogen Normal Negative mg/dL Urine Leukocyte Esterase 2+ Negative /uL Urine RBC 2 0 - 4 /hpf Urine Microscopic WBC 6 H 0-5 /HPF Urine Squamous Epithelial Cells Few <5 /hpf Urine Bacteria Few H None Seen /hpf Urine Mucus Few None Seen Urine Yeast (Budding) Occasional None Seen /hpf Urine Glucose Normal Normal mg/dL Troponin I High Sensitivity < 3 L < 3 L </=34 ng/L White Blood Count 7.6 4.4-10.8 10^3/uL Red Blood Count 5.37 H 4.0-5.20 10^6/uL Hemoglobin 14.1 12.2-16.2 g/dL Hematocrit 42.4 36.0-46.0 % Mean Corpuscular Volume 79.1 L 80.0-100.0 fL Mean Corpuscular Hemoglobin 26.3 L 28.0-32.0 pg Mean Corpuscular Hemoglobin Concent 33.2 32.0-36.0 g/dL Red Cell Distribution Width 17.3 H 11.8-14.3 % Platelet Count 326 140-450 10^3/uL Mean Platelet Volume 8.2 6.9-10.8 fL Neutrophils (%) (Auto) 58.3 37.0-80.0 % Lymphocytes (%) (Auto) 32.0 10.0-50.0 % Monocytes (%) (Auto) 6.5 0.0-12.0 % Eosinophils (%) (Auto) 2.4 0.0-7.0 % Basophils (%) (Auto) 0.8 0.0-2.0 % Neutrophils # (Auto) 4.5 1.6-8.6 10 ^3/uL Lymphocytes # (Auto) 2.4 0.4-5.4 10 ^3/uL Monocytes # (Auto) 0.5 0-1.3 10 ^3/uL Eosinophils # (Auto) 0.2 0-0.8 10 ^3/uL Basophils # (Auto) 0.1 0-0.2 10 ^3/uL Nucleated Red Blood Cells 0.1 % D-Dimer, Quantitative 0.30 0.0-0.49 mg/L FEU Sodium Level 139 136-145 mmol/L Potassium Level 3.9 3.5-5.1 mmol/L Chloride Level 104 98-107 mmol/L Carbon Dioxide Level 25 20-31 mmol/L Anion Gap 10 5-15 Blood Urea Nitrogen 16 9-23 mg/dL Creatinine 1.22 H 0.550-1.02 mg/dL Glomerular Filtration Rate Calc 55 >90 mL/min BUN/Creatinine Ratio 13.1 10.0-20.0 Serum Glucose 104 74-106 mg/dL Calcium Level 9.4 8.7-10.4 mg/dL B-Type Natriuretic Peptide 8.94 0-100 pg/mL IMPRESSION: No acute cardiopulmonary disease. The patient's CBC is within normal limits The chemistry panel is within normal limits The BNP is within normal limits The troponin level x2 is negative The patient does have a UTI The patient is being given Rocephin 1 g IV piggyback for the UTI The patient is still having some persistent chest pain so she is admitted A cardiology consult will be obtained. Images Reviewed?: Images reviewed and evaluated by me Time of 1ST Reevaluation: 11:30 Reevaluation 1ST: Unchanged Patient Education/Counseling: Diagnosis, Treatment, Prognosis Family Education/Counseling: No Family Present Departure 1 Departure Time of Disposition: 15:31 Impression: Primary Impression: Acute coronary syndrome Disposition: ADMITTED INPATIENT Admit to: Tele Condition: Fair Critical Care Note Critical Care Time?: No Stability Stability form required: Yes Unstable for transfer: Telemetry monitoring (Telemetry monitoring required), ED Physician Assesment (Clinical assesment) Heart Score Heart Score: Heart Score Response (Comments) Value History Moderate Suspicious [address]-Deviation 2 Age 45-64 1 Risk Factors 1 or 2 risk factors 1 Troponin Normal limit 0 Total 5 I personally scribed for HERO JACOBO MD ([email or web address]) on 10/21/24 at 11:29. Electronically submitted by Jimbo Casey ([email or web address]). I personally scribed for HERO JACOBO MD ([email or web address]) on 10/21/24 at 12:52. Electronically submitted by Jimbo Casey ([email or web address]). HERO JACOBO MD October 21, 2024 11:29
[2024-10-21 11:38] LABS: Basophils # (auto) 0.1 10 ^3/uL (0-0.2); Basophils % (auto) 0.8 % (0.0-2.0); Eosinophils # (auto) 0.2 10 ^3/uL (0-0.8); Eosinophils % (auto) 2.4 % (0.0-7.0); Hematocrit 42.4 % (36.0-46.0); Hemoglobin 14.1 g/dL (12.2-16.2); Lymphocytes # (auto) 2.4 10 ^3/uL (0.4-5.4); Mean Corpuscular Hemoglobin 26.3 pg (28.0-32.0); Mean Corpuscular Hgb Conc. 33.2 g/dL (32.0-36.0); Mean Corpuscular Volume 79.1 fL (80.0-100.0); Monocytes # (auto) 0.5 10 ^3/uL (0-1.3); Monocytes % (auto) 6.5 % (0.0-12.0); Neutrophils # (auto) 4.5 10 ^3/uL (1.6-8.6); Neutrophils % (auto) 58.3 % (37.0-80.0); Nucleated Red Blood Cells % 0.1 %; Platelet Count (auto) 326 10^3/uL (140-450); Red Blood Cells 5.37 10^6/uL (4.0-5.20); Red Cell Distribution Width 17.3 % (11.8-14.3); White Blood Cell 7.6 10^3/uL (4.4-10.8)
[2024-10-21 11:50] LABS: Chloride 104 mmol/L (98-107); Potassium 3.9 mmol/L (3.5-5.1); Sodium 139 mmol/L (136-145)
[2024-10-21 11:51] LABS: Anion Gap 10 (5-15); Calcium 9.4 mg/dL (8.7-10.4); Carbon Dioxide 25 mmol/L (20-31)
[2024-10-21 11:56] LABS: Glucose 104 mg/dL (74-106)
[2024-10-21 12:04] LABS: BUN/Creatinine Ratio 13.1 (10.0-20.0); Blood Urea Nitrogen 16 mg/dL (9-23)
--- NOTE | 2024-10-21 12:13 | DVH ---
EXAM: XY CHEST PORTABLE Indication: CP Technique: Single frontal view of the chest was obtained Comparison: XY CHEST PORTABLE on DOS: 05/01/24, XY CHEST PORTABLE on DOS: 12/31/23, XY CHEST PORTABLE on DOS: 08/07/23 FINDINGS: Lines and Tubes: None Lungs: No focal consolidation. Pleura: No effusion. No pneumothorax. Cardiomediastinal contours: Unremarkable Bones: No acute osseous abnormality. IMPRESSION: No acute cardiopulmonary disease.
[2024-10-21 12:15] VITALS: PULSE 76; RESP 16; O2SAT 96
[2024-10-21 15:01] LABS: Urine Bacteria FEW /hpf (None Seen); Urine Blood TRACE /uL (Negative); Urine Budding Yeast OCCASIONAL /hpf (None Seen); Urine Clarity Turbid (Clear); Urine Color Light-Yellow (Yellow); Urine Mucus FEW (None Seen); Urine Protein, UAD 1+ (Negative); Urine Specific Gravity 1.014 (1.001-1.035); Urine Squamous Epithelial Cell FEW /hpf (<5); Urine Urobilinogen Normal (Negative); Urine WBC 6 /HPF (0-5); Urine pH 5.5 (5.0-9.0)
[2024-10-21] MEDS ORDERED: ONDANSETRON HCL 4 MG/2 ML VIAL IV PRN (20:45)
[2024-10-21] MEDS ORDERED: NITROGLYCERIN 0.4 MG SL TAB SL PRN (20:45)
[2024-10-21] MEDS ORDERED: MORPHINE SULFATE INJ 2 MG/ml SYRG IV PRN (20:45)
[2024-10-21] MEDS ORDERED: cefTRIAXone 1GM/50ML D5W 50 ML IV ONE (20:45)
[2024-10-21 20:55] VITALS: BP 126/86; PULSE 85; RESP 16; TEMP 98.1; O2SAT 95
[2024-10-21 21:00] VITALS: BP 106/72; PULSE 75; RESP 18; O2SAT 92
[2024-10-21 21:10] VITALS: RESP 16
[2024-10-21] MEDS: cefTRIAXone 2GM/50ML D5W 50 ML IV ONE (21:26)
[2024-10-21] MEDS: PANTOPRAZOLE 40 MG/10 ML VIAL INJ IV ONE (21:26)
[2024-10-21] MEDS: SODIUM CHLOR 0.9% PF (SALINE LOCK) 10ML VIAL/SYR IV SCH (21:31)
[2024-10-21] MEDS: ACETAMINOPHEN 325 MG TAB PO PRN (21:34)
--- NOTE | 2024-10-21 21:43 | DVHHP2 ---
History of Present Illness History of Present Illness Patient is 48 years old female with past medical history of fibromyalgia, fatty liver, GERD, p.r.n. home oxygen due to oxygen or drop of oxygen saturation on exertion , anemia, migraine, anxiety came with a complaint of chest pain. As per patient patient started having chest pain around 9:00 a.m. in the morning, gradual onset, 910, , radiating to the back, sharp in nature, intermittent, relieved with a leaning forward and deep breathing. on further inquiry inquiry patient also reported having palpitation with the same time. Patient also endo rsed having chronic shortness of breath especially with the exertion. Patient reported having leg swelling on the both leg but there is no evidence of leg swelling of the leg. Patient also reported she gets dizziness, blurry vision and headache every day. Initial lab workup revealed serum creatinine 1.22, negative for troponin I, BNP or D-dimer. urinalysis revealed UTI with leukocyte esterase 2+, WBC 6, bacteria few. Chest x-ray no acute abnormality noted, PCP-for UTI H group Dr. Morales lyons Poured Wall Foreman Dr. Yanely Jameson Review of Systems Review of Systems Patient was seen today at the bedside. Respiratory denies cough or wheezing Gastrointestinal- denies any rectal bleeding, nausea or vomiting Musculoskeletal-denies acute joint swelling or tenderness or redness Neurological- denies acute dysarthria, dysphagia, change in vision Psychiatry- denies depression or SI or HI Skin- denies acute rash or purpura Allergies: Coded Allergies: Amoxicillin (Verified Allergy, Unknown, 04/14/23) Azithromycin (Verified Allergy, Unknown, 12/31/23) Ketorolac Tromethamine (Verified Allergy, Unknown, 04/14/23) Medications Current Medications Medications Dose Ordered Sig/Blade Route Start Time Stop Time Status Last Admin Dose Admin Sodium Chloride 10 ml Q8HR IV 10/21/24 22:00 10/21/24 21:31 10 ML Ondansetron HCl 4 mg Q4HP PRN IV 10/21/24 20:45 Docusate Sodium 100 mg BIDPRN PRN PO 10/21/24 20:45 Enoxaparin Sodium 40 mg DAILY SC 10/22/24 10:00 Acetaminophen 650 mg Q6HP PRN PO 10/21/24 20:45 10/21/24 21:34 650 MG Nitroglycerin 0.4 mg Q5MINP PRN SL 10/21/24 20:45 Morphine Sulfate 2 mg Q30M PRN IV 10/21/24 20:45 Albuterol 2.5 mg Q6HR NEB 10/22/24 00:00 Ipratropium [place] 0.5 mg Q6HR NEB 10/22/24 00:00 Pantoprazole Sodium 40 mg DAILY IV 10/22/24 10:00 Exam Vital Signs Vital Signs Date Time Temp Pulse Resp B/P (MAP) Pulse Ox O2 Delivery O2 Flow Rate FiO2 10/21/24 21:10 16 Nasal Cannula* 2 28 10/21/24 20:55 98.1 85 126/86 95 98.1 Exam General examination-, alert, oriented HEENT- [place], no acute nasal discharge Cardiovascular- S1-S2 audible, rate and rhythm regular, no murmur Respiratory- CTAB, no wheeze or rhonchi Gastrointestinal-nontender, bowel sound+. Nondistended Musculoskeletal-no acute joint swelling or tenderness or redness Lower extremity- no leg edema Neurological- cranial nerves intact, no acute dysarthria or dysphagia Psychiatry- denies depression or SI or HI Skin- no acute rash or purpura Labs/Xrays Labs Test 10/21/24 14:20 10/21/24 12:53 10/21/24 11:22 Range/Units Urine Color Light-yellow Yellow Urine Clarity Turbid H Clear Urine pH 5.5 5.0-9.0 Urine Specific [place] 1.014 1.001-1.035 Urine Protein 1+ H Negative Urine Ketones Trace Negative Urine Blood Trace H Negative /uL Urine Nitrite Negative Negative Urine Bilirubin Negative Negative Urine Urobilinogen Normal Negative mg/dL Urine Leukocyte Esterase 2+ Negative /uL Urine RBC 2 0 - 4 /hpf Urine Microscopic WBC 6 H 0-5 /HPF Urine Squamous Epithelial Cells Few <5 /hpf Urine Bacteria Few H None Seen /hpf Urine Mucus Few None Seen Urine Yeast (Budding) Occasional None Seen /hpf Urine Glucose Normal Normal mg/dL Troponin I High Sensitivity < 3 L </=34 ng/L White Blood Count 7.6 4.4-10.8 10^3/uL Red Blood Count 5.37 H 4.0-5.20 10^6/uL Hemoglobin 14.1 12.2-16.2 g/dL Hematocrit 42.4 36.0-46.0 % Mean Corpuscular Volume 79.1 L 80.0-100.0 fL Mean Corpuscular Hemoglobin 26.3 L 28.0-32.0 pg Mean Corpuscular Hemoglobin Concent 33.2 32.0-36.0 g/dL Red Cell Distribution Width 17.3 H 11.8-14.3 % Platelet Count 326 140-450 10^3/uL Mean Platelet Volume 8.2 6.9-10.8 fL Neutrophils (%) (Auto) 58.3 37.0-80.0 % Lymphocytes (%) (Auto) 32.0 10.0-50.0 % Monocytes (%) (Auto) 6.5 0.0-12.0 % Eosinophils (%) (Auto) 2.4 0.0-7.0 % Basophils (%) (Auto) 0.8 0.0-2.0 % Neutrophils # (Auto) 4.5 1.6-8.6 10 ^3/uL Lymphocytes # (Auto) 2.4 0.4-5.4 10 ^3/uL Monocytes # (Auto) 0.5 0-1.3 10 ^3/uL Eosinophils # (Auto) 0.2 0-0.8 10 ^3/uL Basophils # (Auto) 0.1 0-0.2 10 ^3/uL Nucleated Red Blood Cells 0.1 % D-Dimer, Quantitative 0.30 0.0-0.49 mg/L FEU Sodium Level 139 136-145 mmol/L Potassium Level 3.9 3.5-5.1 mmol/L Chloride Level 104 98-107 mmol/L Carbon Dioxide Level 25 20-31 mmol/L Anion Gap 10 5-15 Blood Urea Nitrogen 16 9-23 mg/dL Creatinine 1.22 H 0.550-1.02 mg/dL Glomerular Filtration Rate Calc 55 >90 mL/min BUN/Creatinine Ratio 13.1 10.0-20.0 Serum Glucose 104 74-106 mg/dL Calcium Level 9.4 8.7-10.4 mg/dL B-Type Natriuretic Peptide 8.94 0-100 pg/mL Assessment/Plan Assessment/Plan Assessment and plan Acute chest pain, rule out acute coronary syndrome/embolism Acute chest pain likely due to acute pleuritic chest pain LASHAWN likely due to VMN Acute complicated cystitis with the endocrine damage Fibromyalgia Fatty liver Migraine Anxiety Plan Aspirin 81 mg p.o. daily Atorvastatin 20 mg p.o. q.h.s. Ceftriaxone 1 g IV daily Dehydration and nephrotoxic drugs Pantoprazole Lovenox prophylaxis ORDERED ECHO 2D Ordered cardiology consult Goals of care, Code status ; discussed with >15 minutes PUD prophylaxis: Pantoprazole DVT prophylaxis: Lovenox Plan discussed with Dr. Kahn , nursing staff, Total time spent on patient evaluation, chart review, assessment and plan, discussion discussion >35 minutes Plan discussed with: Patient, Other (RN) My Orders Orders - WYATT HINES RESIDENT Procedure Category Date Status Time Admit ADMIT 10/21/24 Transmitted 20:33 Code Status CODE 10/21/24 Transmitted 20:33 Sodium Chloride Lock PHA 10/21/24 In Process (Saline Lock Ns) 22:00 Ondansetron Hcl PHA 10/21/24 In Process (Zofran) 20:45 Docusate Sodium PHA 10/21/24 In Process Capsule (Colace 20:45 Enoxaparin Sodium PHA 10/22/24 In Process (Lovenox) 10:00 Complete Blood Count LAB 10/22/24 Verified 04:00 Comprehensive LAB 10/22/24 Verified Metabolic Panel 04:00 Cardiac DIET 10/22/24 Transmitted Diet-2gna,Lofat,Lochol Breakfast Echo 2d Mode Cardiac US 10/21/24 Logged DOP 20:33 Acetaminophen Tablet PHA 10/21/24 In Process (Tylenol Tablet) 20:45 Nitroglycerin PHA 10/21/24 In Process Sublingual (Ntrostat 20:45 Morphine Sulfate PHA 10/21/24 In Process Injection 20:45 Oxygen By Nasal RT 10/21/24 Transmitted Cannula 20:33 Stat Ekg For Chest MIRZA 10/21/24 In Process Pain 20:33 Notify Md Of Changes MIRZA 10/21/24 In Process From Base 20:33 Integrated Marketing Specialist For MIRZA 10/21/24 In Process 24 Hours 20:33 Emergency Dysrhythmia MIRAZ 10/21/24 In Process Protocol 20:33 Rhythm Strips Once MIRZA 10/21/24 In Process Every Shift 20:33 Urine Bacterial LIZY 10/21/24 In Process Culture 20:35 Ceftriaxone 2gm/50ml PHA 10/21/24 In Process D5w (Rocephin 2gm/5 20:45 Albuterol Medneb PHA 10/22/24 In Process (Ventolin Medneb) 00:00 Ipratropium Medneb PHA 10/22/24 In Process (Atrovent Medneb) 00:00 Pantoprazole PHA 10/22/24 In Process (Protonix) 10:00 Date of Service: October 21, 2024 Billing Provider: LILY KAHN MD Common Visit Codes: 12646-GCYBGUG INP/OBS CARE (HIGH) Secondary Visit Codes: 53418-ZAAHZSYA CARE PLAN 30 MINUTES WYATT HINES RESIDENT October 21, 2024 21:43
[2024-10-21] MEDS: ASPirin 81 mg TAB PO ONE (22:07)
[2024-10-21] MEDS: ATORVASTATIN 20 MG TAB PO ONE (22:08)
[2024-10-21 22:51] VITALS: BP 92/61; PULSE 68; RESP 18; TEMP 97.5; O2SAT 97
[2024-10-21 22:56] VITALS: PULSE 68; RESP 18; O2SAT 97
[2024-10-22] VITALS (11 sets, daily range): BP systolic 95–105; BP diastolic 63–71; PULSE 53–99; RESP 16–18; TEMP 97.3–98; O2SAT 94–100
[2024-10-22] MEDS: ALBUTEROL SULF 2.5 MG/0.5ML(0.5%) NEB SOLN NEB SCH
[2024-10-22] MEDS: IPRATROPIUM BROM 0.5 MG/2.5ML INH SOL NEB SCH
[2024-10-22] MEDS ORDERED: SUMA1SPR2 (00:24)
[2024-10-22] MEDS ORDERED: PANT40TA2 PO (00:24)
--- NOTE | 2024-10-22 07:13 | ECG ---
[facility] Test Date: 2024-10-21 Test Time: 11:02:58 Pat Name: VIVIANA HANLEY Department: ED Room: [address] [place] [address] 8 Gender: F Compliance Testing Analyst: ANDREY : 1975 Requested By: HERO JACOBO Order Number: [id number] Reading MD: Nikhil Baxter Measurements Intervals [place] Rate: 64 P: 6 NC: 154 QRS: 40 QRSD: 82 T: 28 QT: 399 QTc: 412 Interpretive Statements Sinus rhythm Electronically Signed On 10-26-2024 12:07:55 PDT by Nikhil Baxter Please click the below link to view image of tracing.
--- NOTE | 2024-10-22 07:13 | ECG ---
[facility] Test Date: 2024-10-21 Test Time: 12:05:22 Pat Name: VIVIANA HANLEY Department: ED Room: [address] [place] [address] 8 Gender: F Consumer Attorney: ANDREY : 1975 Requested By: HERO JACOBO Order Number: [id number] Reading MD: Nikhil Baxter Measurements Intervals [place] Rate: 85 P: 19 FL: 146 QRS: 87 QRSD: 89 T: 8 QT: 375 QTc: 446 Interpretive Statements Sinus rhythm Electronically Signed On 10-26-2024 12:08:08 PDT by Nikhil Baxter Please click the below link to view image of tracing.
[2024-10-22 07:59] LABS: Basophils # (auto) 0 10 ^3/uL (0-0.2); Basophils % (auto) 0.6 % (0.0-2.0); Eosinophils # (auto) 0.2 10 ^3/uL (0-0.8); Eosinophils % (auto) 3.3 % (0.0-7.0); Hematocrit 41.1 % (36.0-46.0); Hemoglobin 13.7 g/dL (12.2-16.2); Lymphocytes # (auto) 1.5 10 ^3/uL (0.4-5.4); Lymphocytes % (auto) 23.2 % (10.0-50.0); Mean Corpuscular Hemoglobin 26.4 pg (28.0-32.0); Mean Corpuscular Hgb Conc. 33.2 g/dL (32.0-36.0); Mean Corpuscular Volume 79.5 fL (80.0-100.0); Monocytes # (auto) 0.4 10 ^3/uL (0-1.3); Neutrophils # (auto) 4.2 10 ^3/uL (1.6-8.6); Neutrophils % (auto) 65.9 % (37.0-80.0); Nucleated Red Blood Cells % 0.1 %; Platelet Count (auto) 301 10^3/uL (140-450); Red Blood Cells 5.18 10^6/uL (4.0-5.20); Red Cell Distribution Width 17.4 % (11.8-14.3); White Blood Cell 6.4 10^3/uL (4.4-10.8)
[2024-10-22 08:18] LABS: Alanine Aminotransferase 17 U/L (7-40); Albumin 4.2 g/dL (3.2-4.8); Alkaline Phosphatase 70 U/L (46-116); Anion Gap 7 (5-15); Aspartate Aminotransferase 15 U/L (13-40); BUN/Creatinine Ratio 13.4 (10.0-20.0); Bilirubin, Total 0.5 mg/dL (0.2-1.0); Blood Urea Nitrogen 15 mg/dL (9-23); Calcium 9.9 mg/dL (8.7-10.4); Carbon Dioxide 28 mmol/L (20-31); Chloride 105 mmol/L (98-107); Glucose 102 mg/dL (74-106); Sodium 140 mmol/L (136-145)
[2024-10-22] MEDS: ASPirin 81 mg TAB PO SCH (08:55)
[2024-10-22] MEDS: ENOXAPARIN SOD 40 MG/0.4 ML SYRINGE SC SCH (08:55)
[2024-10-22] MEDS: PANTOPRAZOLE 40 MG/10 ML VIAL INJ IV SCH (08:57)
--- NOTE | 2024-10-22 10:11 | DVHINCON2 ---
Date Seen: October 22, 2024 Referring Physician Saul Reason for Consultation Chest pain History of Present Illness 48-year-old female with PMH for migraines, fibromyalgia, fatty liver, as needed home O2 use presents to the hospital with hypoxia, bradycardia, and episode of chest pain. Patient states she was feeling kind of weak and ended up having a shower though felt lightheaded noted to be hypoxic on room air and her heart rate was in the 50s. Patient was hanging out with family when all of sudden she had this pressure sensation across the front of her chest radiating to the back, lasting approximately 2 minutes, associated with some shortness of breath, nonexertional, also associated with lightheadedness. Patient also felt like if her heart was skipping beats. Patient states daughter told her she looked pale at that time. Patient has been following up with pulmonology though has not been diagnosed with any pulmonary disease, patient also had followed up with Cardiology in the past states possible cardiac workup but unsure of what kind. Patient was also possibly refer to EP though does not know for which reason. Troponin negative x2. BNP negative. CXR unremarkable. EKG reviewed and shows sinus bradycardia at 52 beats per minute, no significant ST and T-wave abnormality. Past Medical History As stated above Past Surgical History Denies previous cardiac surgeries Family History: Diabetes mellitus G8 MOTHER G8 FATHER FH: congestive heart failure FH: prostate cancer G8 FATHER FH: thyroid disease G8 MOTHER Hypercholesterolemia G8 MOTHER G8 FATHER Hypertension G8 MOTHER Social History Denies alcohol, tobacco, or illicit drug use. Allergies: Coded Allergies: Amoxicillin (Verified Allergy, Unknown, 04/14/23) Azithromycin (Verified Allergy, Unknown, 12/31/23) Ketorolac Tromethamine (Verified Allergy, Unknown, 04/14/23) Home Meds Active Scripts Tramadol HCl (Tramadol HCl) 50 Mg Tab, 50 MG PO TID, #20 TAB Prov:JESSICA URIAS 10/23/23 Sulfamethoxazole W/Trimethopri (Bactrim Ds Tablet) 1 Tab Tb, 1 TAB PO BID for 10 Days, #20 TAB Prov:JESSICA URIAS 10/23/23 Nitrofurantoin Monohydrate Mac (Macrobid) 100 Mg Cap, 100 MG PO BID for 7 Days, #14 CAP Prov:HERO JACOBO MD 05/21/23 Epinephrine (Epinephrine) 0.3 Mg/0.3 Ml Inj, 0.3 MG IJ ONCE PRN, #2 INJ 0 Refills Prov:BERLIN ARECHIGA MD 10/30/21 Cyclobenzaprine Hcl (Cyclobenzaprine Hcl) 5 Mg Tab, 1 TAB PO QPM, #14 TAB 0 Refills Prov:JOSE ALEJANDRO PARADA 08/28/21 Reported Medications Pantoprazole Sodium Sesquihydr (Protonix) 40 Mg Tab, 40 MG PO DAILY, #30 TAB 10/22/24 Sumatriptan Base (Sumatriptan) 20 Mg/Act Spr, 20 MG NA, SPRAY 10/22/24 Current Medications Current Medications Medications (Trade) Dose Ordered Sig/Blade Route PRN Reason Start Time Stop Time Status Last Admin Sodium Chloride (Saline Lock Ns) 10 ml Q8HR IV 10/21/24 22:00 10/22/24 06:27 Ondansetron HCl (Zofran) 4 mg Q4HP PRN IV NAUSEA / VOMITING 10/21/24 20:45 Docusate Sodium (Colace Capsule) 100 mg BIDPRN PRN PO FOR CONSTIPATION 10/21/24 20:45 Enoxaparin Sodium (Lovenox) 40 mg DAILY SC 10/22/24 10:00 Acetaminophen (Tylenol Tablet) 650 mg Q6HP PRN PO PAIN SCALE 1-3 OR TEMP>100.4 10/21/24 20:45 10/22/24 08:54 Nitroglycerin (Ntrostat Sublingual) 0.4 mg Q5MINP PRN SL FOR CHEST PAIN 10/21/24 20:45 Morphine Sulfate 2 mg Q30M PRN IV FOR CHEST PAIN 10/21/24 20:45 Albuterol (Ventolin Medneb) 2.5 mg Q6HR NEB 10/22/24 00:00 Ipratropium [place] (Atrovent Medneb) 0.5 mg Q6HR NEB 10/22/24 00:00 Pantoprazole Sodium (Protonix) 40 mg DAILY IV 10/22/24 10:00 Aspirin 81 mg DAILY PO 10/22/24 10:00 10/22/24 08:55 Atorvastatin Calcium (Lipitor) 20 mg HS PO 10/22/24 22:00 Review of Systems Constitutional: No: Fever, Chills, Sweats, Weakness, Malaise, Other Eyes: No: Pain, Vision change, Conjunctivae inflammation, Eyelid inflammation, Other, Redness ENT: No: Ear pain, Ear discharge, Nose pain, Nose discharge, Nose congestion, Mouth pain, Mouth swelling, Throat pain, Throat swelling, Other Respiratory: No: Cough, Dry, Shortness of breath, SOB with exertion, Wheezing, Hemoptysis, Pleuritic Pain, Sputum, Wheezing, Other Cardiovascular: ; No: Palpitations, Orthopnea, Paroxysmal Noc. Dyspnea, Edema,, Other positive: Chest Pain Lt Headedness Gastrointestinal: No: Nausea, Vomiting, Abdominal Pain, Diarrhea, Constipation, Melena, Hematochezia, Other Genitourinary: No Dysuria, No Frequency, No Incontinence, No Hematuria, No Retention, No Other Musculoskeletal: neck pain; No: other, shoulder pain, arm pain, back pain, hand pain, leg pain, foot pain Skin: No: Rash, Lesions, Jaundice, Bruising, Other Neurological: Other (Dizziness, headache.); No: Weakness, Numbness, Incoordination, Change in speech, Confusion, Seizures Vital Signs Vital Signs Date Time Temp Pulse Resp B/P (MAP) Pulse Ox O2 Delivery O2 Flow Rate FiO2 10/22/24 08:50 97.8 53 17 105/64 (78) 95 97.8 10/21/24 22:56 Room Air* 0 21 Physical Exam General appearance: Patient is well-developed, well-nourished, in no acute distress. HEENT: Exam shows: Normocephalic, atraumatic, PERRLA, EOMI Neck: Supple, no bruits Chest: Equal chest excursion bilaterally. Breath sounds normal-no rales or wheezes. Heart: Rhythm: Regular rate; no murmur or gallop Abdomen: Exam shows: Soft, nontender, nondistended Musculoskeletal: No clubbing, no cyanosis, no lower extremity edema Dermatology: Skin warm, moist. Neurological: Exam shows: Alert and oriented x4, normal speech Available prior records, labs, EKG, rhythm strips reviewed and interpreted Labs/Diagnostic Data Labs Test 10/22/24 06:44 10/21/24 14:20 10/21/24 12:53 10/21/24 11:22 Range/Units White Blood Count 6.4 4.4-10.8 10^3/uL Red Blood Count 5.18 4.0-5.20 10^6/uL Hemoglobin 13.7 12.2-16.2 g/dL Hematocrit 41.1 36.0-46.0 % Mean Corpuscular Volume 79.5 L 80.0-100.0 fL Mean Corpuscular Hemoglobin 26.4 L 28.0-32.0 pg Mean Corpuscular Hemoglobin Concent 33.2 32.0-36.0 g/dL Red Cell Distribution Width 17.4 H 11.8-14.3 % Platelet Count 301 140-450 10^3/uL Mean Platelet Volume 8.2 6.9-10.8 fL Neutrophils (%) (Auto) 65.9 37.0-80.0 % Lymphocytes (%) (Auto) 23.2 10.0-50.0 % Monocytes (%) (Auto) 7.0 0.0-12.0 % Eosinophils (%) (Auto) 3.3 0.0-7.0 % Basophils (%) (Auto) 0.6 0.0-2.0 % Neutrophils # (Auto) 4.2 1.6-8.6 10 ^3/uL Lymphocytes # (Auto) 1.5 0.4-5.4 10 ^3/uL Monocytes # (Auto) 0.4 0-1.3 10 ^3/uL Eosinophils # (Auto) 0.2 0-0.8 10 ^3/uL Basophils # (Auto) 0 0-0.2 10 ^3/uL Nucleated Red Blood Cells 0.1 % Sodium Level 140 136-145 mmol/L Potassium Level 4.0 3.5-5.1 mmol/L Chloride Level 105 98-107 mmol/L Carbon Dioxide Level 28 20-31 mmol/L Anion Gap 7 5-15 Blood Urea Nitrogen 15 9-23 mg/dL Creatinine 1.12 H 0.550-1.02 mg/dL Glomerular Filtration Rate Calc 61 >90 mL/min BUN/Creatinine Ratio 13.4 10.0-20.0 Serum Glucose 102 74-106 mg/dL Hemoglobin A1c 5.8 H <5.7 % A1C Calcium Level 9.9 8.7-10.4 mg/dL Magnesium Level 2.0 1.6-2.6 mg/dL Total Bilirubin 0.5 0.2-1.0 mg/dL Aspartate Amino Transferase (AST) 15 13-40 U/L Alanine Aminotransferase (ALT) 17 7-40 U/L Alkaline Phosphatase 70 46-116 U/L Total Protein 7.0 5.7-8.2 g/dL Albumin 4.2 3.2-4.8 g/dL Thyroid Stimulating Hormone (TSH) 1.65 0.55-4.78 uIU/mL Urine Color Light-yellow Yellow Urine Clarity Turbid H Clear Urine pH 5.5 5.0-9.0 Urine Specific [place] 1.014 1.001-1.035 Urine Protein 1+ H Negative Urine Ketones Trace Negative Urine Blood Trace H Negative /uL Urine Nitrite Negative Negative Urine Bilirubin Negative Negative Urine Urobilinogen Normal Negative mg/dL Urine Leukocyte Esterase 2+ Negative /uL Urine RBC 2 0 - 4 /hpf Urine Microscopic WBC 6 H 0-5 /HPF Urine Squamous Epithelial Cells Few <5 /hpf Urine Bacteria Few H None Seen /hpf Urine Mucus Few None Seen Urine Yeast (Budding) Occasional None Seen /hpf Urine Glucose Normal Normal mg/dL Troponin I High Sensitivity < 3 L </=34 ng/L D-Dimer, Quantitative 0.30 0.0-0.49 mg/L FEU B-Type Natriuretic Peptide 8.94 0-100 pg/mL Microbiology Date/Time Source Procedure Growth Status 10/21/24 14:20 Voided Urine Urine Culture - Preliminary Resulted Assessment Chest pain Palpitations Shortness of breath UTI Plan/Recommendation * Continue aspirin and statin. Check echo. EKG negative for acute ischemic changes. * Check TSH. Continue telemetry monitoring. * Continue IV antibiotics. Case Discussed with Dr Carrillo . Continue telemetry monitoring. Follow up echo. Plan for ischemic workup with stress test Thursday. Critical care, time spent: 40 minutes This medical document was created using an electronic medical record system with voice recognition software and computerized dictation system. Although this document has been carefully reviewed, there might still be some phonetic and typographical errors. Occasional wrong-word or ``sound-alike�� substitutions may have occurred due to the inherent limitations of voice recognition software. These areas are purely typographical due to imperfections of the software programs and do not reflect any compromise in the patient's medical care. Please read the chart carefully and recognize, using context, where these substitutions have occurred. Thank you for allowing me to participate in the management of this patient. The treatment plan was discussed with and agreed upon by patient/family including requesting consultants and ordering of imaging/procedures. Plan discussed with: Patient NYHA Physical activity limitations: Class2(Slight)fatigue,sob Date of Service: October 22, 2024 Billing Provider: DEVIKA HUTCHINS Cardiology Common Codes: [id number] INP/OBS CARE (High), [id number] CARE 30-74 MIN DEVIKA HUTCHINS October 22, 2024 10:11
--- NOTE | 2024-10-22 12:57 | DVHPN2 ---
Reviewed: Care Plan, H&P, Labs, Medications, Previous Orders, Radiology Changes from previous H/P or p: No Changes Objective Vitals Vital Signs Date Time Temp Pulse Resp B/P (MAP) Pulse Ox O2 Delivery O2 Flow Rate FiO2 10/22/24 11:10 80 18 10/22/24 11:06 95 10/22/24 11:06 Room Air 10/22/24 11:06 0 21 10/22/24 08:50 97.8 105/64 (78) 97.8 Intake/Output Intake and Output 10/22/24 07:00 Intake Total 150 ml Balance 150 ml Intake Oral 100 ml IV Total 50 ml # Voids 1 Medications Current Medications Medications Dose Ordered Sig/Blade Route Start Time Stop Time Status Last Admin Dose Admin Sodium Chloride 10 ml Q8HR IV 10/21/24 22:00 10/22/24 06:27 10 ML Ondansetron HCl 4 mg Q4HP PRN IV 10/21/24 20:45 Docusate Sodium 100 mg BIDPRN PRN PO 10/21/24 20:45 Enoxaparin Sodium 40 mg DAILY SC 10/22/24 10:00 Acetaminophen 650 mg Q6HP PRN PO 10/21/24 20:45 10/22/24 08:54 650 MG Nitroglycerin 0.4 mg Q5MINP PRN SL 10/21/24 20:45 Morphine Sulfate 2 mg Q30M PRN IV 10/21/24 20:45 Albuterol 2.5 mg Q6HR NEB 10/22/24 00:00 10/22/24 11:06 2.5 MG Ipratropium [place] 0.5 mg Q6HR NEB 10/22/24 00:00 10/22/24 11:06 0.5 MG Pantoprazole Sodium 40 mg DAILY IV 10/22/24 10:00 Aspirin 81 mg DAILY PO 10/22/24 10:00 10/22/24 08:55 81 MG Atorvastatin Calcium 20 mg HS PO 10/22/24 22:00 Laboratory Results Laboratory Tests 10/22/24 06:44 Chemistry Test 10/22/24 06:44 Albumin 4.2 g/dL (3.2-4.8) Calcium Level 9.9 mg/dL (8.7-10.4) Magnesium Level 2.0 mg/dL (1.6-2.6) Total Protein 7.0 g/dL (5.7-8.2) LFT Test 10/22/24 06:44 Alanine Aminotransferase (ALT) 17 U/L (7-40) Alkaline Phosphatase 70 U/L (46-116) Aspartate Amino Transferase (AST) 15 U/L (13-40) Total Bilirubin 0.5 mg/dL (0.2-1.0) HgA1c, TSH Test 10/22/24 06:44 Hemoglobin A1c 5.8 % A1C (<5.7) H Thyroid Stimulating Hormone (TSH) 1.65 uIU/mL (0.55-4.78) Urinalysis Test 10/21/24 14:20 Urine Color Light-yellow (Yellow) Urine Clarity Turbid (Clear) H Urine pH 5.5 (5.0-9.0) Urine Specific [place] 1.014 (1.001-1.035) Urine Protein 1+ (Negative) H Urine Ketones Trace (Negative) Urine Blood Trace /uL (Negative) H Urine Nitrite Negative (Negative) Urine Bilirubin Negative (Negative) Urine Urobilinogen Normal mg/dL (Negative) Urine Leukocyte Esterase 2+ /uL (Negative) Urine RBC 2 /hpf (0 - 4) Urine Microscopic WBC 6 /HPF (0-5) H Urine Squamous Epithelial Cells Few /hpf (<5) Urine Bacteria Few /hpf (None Seen) H Urine Mucus Few (None Seen) Urine Yeast (Budding) Occasional /hpf (None Urine Glucose Normal mg/dL (Normal) Microbiology Microbiology Date/Time Source Procedure Growth Status 10/21/24 14:20 Voided Urine Urine Culture - Preliminary Resulted Labs and/or images reviewed: Labs reviewed by me, Image(s) reviewed by me Assessment/Plan Assessment/Plan Acute chest pain, rule out acute coronary syndrome/embolism, cardiology consult by Dr. Carrillo appreciated, planning for stress test on Thursday treatment per ACS protocol Acute chest pain likely due to acute pleuritic chest pain LASHAWN likely due to VMN Acute complicated cystitis with the endocrine damage Fibromyalgia Fatty liver Migraine Anxiety Obstructive sleep apnea on CPAP at home, being followed by . Plan discussed with: Patient Date of Service: October 22, 2024 Billing Provider: IRINA HOUSTON MD Common Visit Codes: [id number] INP/OBS CARE(HIGH) IRINA HOUSTON MD October 22, 2024 12:57
[2024-10-22] MEDS: DOCUSATE SOD 100 MG CAP PO PRN (13:05)
--- NOTE | 2024-10-22 17:57 | DVHSR ---
APPROVED REPORT EXAM: LIMITED Two-dimensional and M-mode echocardiogram with Doppler and color Doppler. Blood Pressure: 105/64 mmHg INDICATION Chest Pain SOB RISK FACTORS Height: 5' 1", Weight: 197 DIMENSIONS LVDd4.9 (3.8-5.7cm)LA (2D)3.8 (1.9-4.0cm)Aortic Root4.4 (2.0-3.7cm) LVDs3.3 (2.5-4.0cm)LA (MM) (1.9-4.0cm)Aortic Cusp Exc2.0 (1.5-2.0cm) EF (%) 60.0 (55-70%)Rt. Atrium3.2 (1.9-4.0cm)Asc. Aorta cm IVSd1.1 (0.7-1.1cm)RV (D) (1.8-2.4cm) PWd1.0 (0.7-1.1cm) Mitral Valve MitralMitral Stenosis E wave0.70m/sMV Mean GR.mmHg A wave0.80m/sMV Peak GR.mmHg E/A ratio0.92D MVAcm2 Aortic Valve Aortic ValveAortic Stenosis V10.90m/Claudia Mean GR.3mmHg V21.10m/Claudia Peak GR.5mmHg LVOT Diameter2.1 (1.8-2.4cm)Doppler AVA2.83cm2 Pulmonic Valve V20.60m/s Other Information Quality : Technically LimitedRhythm : Technically limited study due to body habitus. Conclusion LV EF IS 65% AND IS NORMAL NORMAL VALVES NORMAL RV FUNCTION NO EFUSION
[2024-10-22] MEDS: ATORVASTATIN 20 MG TAB PO SCH (21:36)
--- NOTE | 2024-10-22 23:27 | DVHINCON2 ---
Date Seen: October 22, 2024 Referring Physician Saul Reason for Consultation Chest pain History of Present Illness This is a 48-year-old female with a PMH of migraines, fibromyalgia, fatty liver, as needed home O2 use presents to the ED with complaints of hypoxia, bradycardia, and episode of chest pain. Patient states she was feeling "kind of weak" and ended up taking a shower though she felt lightheaded and was noted to be hypoxic on room air and her heart rate was in the 50s. Patient was hanging out with family members when all of sudden she had this pressure sensation across the front of her chest radiating to the back, lasting approximately 2 minutes, associated with some shortness of breath, nonexertional, also associated with lightheadedness. Patient also felt like if her heart was skipping beats. Patient states her daughter told her she looked pale at that time. Patient has been following up with pulmonology though has not been diagnosed with any pulmonary disease, patient also had followed up with Cardiology in the past states possible cardiac workup but unsure of what kind. Patient was also possibly referred to EP though does not know for what reason. Troponin negative x2. BNP negative. Chest x-ray is unremarkable. EKG reviewed and shows sinus bradycardia at 52 beats per minute, no significant ST and T-wave abnormality. Patient was admitted to the hospital. I am asked to consult on this patient. Past Medical History As stated above Past Surgical History Denies previous cardiac surgeries Family History: Diabetes mellitus G8 MOTHER G8 FATHER FH: congestive heart failure FH: prostate cancer G8 FATHER FH: thyroid disease G8 MOTHER Hypercholesterolemia G8 MOTHER G8 FATHER Hypertension G8 MOTHER Allergies: Coded Allergies: Amoxicillin (Verified Allergy, Unknown, 04/14/23) Azithromycin (Verified Allergy, Unknown, 12/31/23) Ketorolac Tromethamine (Verified Allergy, Unknown, 04/14/23) Home Meds Active Scripts Tramadol HCl (Tramadol HCl) 50 Mg Tab, 50 MG PO TID, #20 TAB Prov:JESSCIA URIAS 10/23/23 Sulfamethoxazole W/Trimethopri (Bactrim Ds Tablet) 1 Tab Tb, 1 TAB PO BID for 10 Days, #20 TAB Prov:JESSICA URIAS 10/23/23 Nitrofurantoin Monohydrate Mac (Macrobid) 100 Mg Cap, 100 MG PO BID for 7 Days, #14 CAP Prov:HERO JACOBO MD 05/21/23 Epinephrine (Epinephrine) 0.3 Mg/0.3 Ml Inj, 0.3 MG IJ ONCE PRN, #2 INJ 0 Refills Prov:BERLIN ARECHIGA MD 10/30/21 Cyclobenzaprine Hcl (Cyclobenzaprine Hcl) 5 Mg Tab, 1 TAB PO QPM, #14 TAB 0 Refills Prov:JOSE ALEJANDRO PARADA 08/28/21 Reported Medications Pantoprazole Sodium Sesquihydr (Protonix) 40 Mg Tab, 40 MG PO DAILY, #30 TAB 10/22/24 Sumatriptan Base (Sumatriptan) 20 Mg/Act Spr, 20 MG NA, SPRAY 10/22/24 Current Medications Current Medications Medications (Trade) Dose Ordered Sig/Blade Route PRN Reason Start Time Stop Time Status Last Admin Sodium Chloride (Saline Lock Ns) 10 ml Q8HR IV 10/21/24 22:00 10/22/24 06:27 Ondansetron HCl (Zofran) 4 mg Q4HP PRN IV NAUSEA / VOMITING 10/21/24 20:45 Docusate Sodium (Colace Capsule) 100 mg BIDPRN PRN PO FOR CONSTIPATION 10/21/24 20:45 Enoxaparin Sodium (Lovenox) 40 mg DAILY SC 10/22/24 10:00 Acetaminophen (Tylenol Tablet) 650 mg Q6HP PRN PO PAIN SCALE 1-3 OR TEMP>100.4 10/21/24 20:45 10/22/24 08:54 Nitroglycerin (Ntrostat Sublingual) 0.4 mg Q5MINP PRN SL FOR CHEST PAIN 10/21/24 20:45 Morphine Sulfate 2 mg Q30M PRN IV FOR CHEST PAIN 10/21/24 20:45 Albuterol (Ventolin Medneb) 2.5 mg Q6HR NEB 10/22/24 00:00 10/22/24 11:06 Ipratropium [place] (Atrovent Medneb) 0.5 mg Q6HR NEB 10/22/24 00:00 10/22/24 11:06 Pantoprazole Sodium (Protonix) 40 mg DAILY IV 10/22/24 10:00 Aspirin 81 mg DAILY PO 10/22/24 10:00 10/22/24 08:55 Atorvastatin Calcium (Lipitor) 20 mg HS PO 10/22/24 22:00 Review of Systems Constitutional: No: Fever, Chills, Sweats, Weakness, Malaise, Other Eyes: No: Pain, Vision change, Conjunctivae inflammation, Eyelid inflammation, Other, Redness ENT: No: Ear pain, Ear discharge, Nose pain, Nose discharge, Nose congestion, Mouth pain, Mouth swelling, Throat pain, Throat swelling, Other Respiratory: No: Cough, Dry, Shortness of breath, SOB with exertion, Wheezing, Hemoptysis, Pleuritic Pain, Sputum, Wheezing, Other Cardiovascular: ; No: Palpitations, Orthopnea, Paroxysmal Noc. Dyspnea, Edema,, Other positive: Chest Pain Lt Headedness Gastrointestinal: No: Nausea, Vomiting, Abdominal Pain, Diarrhea, Constipation, Melena, Hematochezia, Other Genitourinary: No Dysuria, No Frequency, No Incontinence, No Hematuria, No Retention, No Other Musculoskeletal: neck pain; No: other, shoulder pain, arm pain, back pain, hand pain, leg pain, foot pain Skin: No: Rash, Lesions, Jaundice, Bruising, Other Neurological: Other (Dizziness, headache.); No: Weakness, Numbness, Incoordination, Change in speech, Confusion, Seizures Vital Signs Vital Signs Date Time Temp Pulse Resp B/P (MAP) Pulse Ox O2 Delivery O2 Flow Rate FiO2 10/22/24 11:10 80 18 10/22/24 11:06 95 10/22/24 11:06 Room Air 10/22/24 11:06 0 21 10/22/24 08:50 97.8 105/64 (78) 97.8 Physical Exam GENERAL: Alert and oriented x 3. No acute distress. EYES: PERRL, EOMI. Anicteric. HENT: Moist mucous membranes. LUNGS: Clear to auscultation bilaterally. CARDIOVASCULAR: Regular rate and rhythm. ABDOMEN: Soft, nontender and nondistended. EXTREMITIES: No edema. NEUROLOGIC: No focal neurological deficits. SKIN: Warm, dry. Labs/Diagnostic Data Labs Test 10/22/24 06:44 10/21/24 14:20 10/21/24 12:53 10/21/24 11:22 Range/Units White Blood Count 6.4 4.4-10.8 10^3/uL Red Blood Count 5.18 4.0-5.20 10^6/uL Hemoglobin 13.7 12.2-16.2 g/dL Hematocrit 41.1 36.0-46.0 % Mean Corpuscular Volume 79.5 L 80.0-100.0 fL Mean Corpuscular Hemoglobin 26.4 L 28.0-32.0 pg Mean Corpuscular Hemoglobin Concent 33.2 32.0-36.0 g/dL Red Cell Distribution Width 17.4 H 11.8-14.3 % Platelet Count 301 140-450 10^3/uL Mean Platelet Volume 8.2 6.9-10.8 fL Neutrophils (%) (Auto) 65.9 37.0-80.0 % Lymphocytes (%) (Auto) 23.2 10.0-50.0 % Monocytes (%) (Auto) 7.0 0.0-12.0 % Eosinophils (%) (Auto) 3.3 0.0-7.0 % Basophils (%) (Auto) 0.6 0.0-2.0 % Neutrophils # (Auto) 4.2 1.6-8.6 10 ^3/uL Lymphocytes # (Auto) 1.5 0.4-5.4 10 ^3/uL Monocytes # (Auto) 0.4 0-1.3 10 ^3/uL Eosinophils # (Auto) 0.2 0-0.8 10 ^3/uL Basophils # (Auto) 0 0-0.2 10 ^3/uL Nucleated Red Blood Cells 0.1 % Sodium Level 140 136-145 mmol/L Potassium Level 4.0 3.5-5.1 mmol/L Chloride Level 105 98-107 mmol/L Carbon Dioxide Level 28 20-31 mmol/L Anion Gap 7 5-15 Blood Urea Nitrogen 15 9-23 mg/dL Creatinine 1.12 H 0.550-1.02 mg/dL Glomerular Filtration Rate Calc 61 >90 mL/min BUN/Creatinine Ratio 13.4 10.0-20.0 Serum Glucose 102 74-106 mg/dL Hemoglobin A1c 5.8 H <5.7 % A1C Calcium Level 9.9 8.7-10.4 mg/dL Magnesium Level 2.0 1.6-2.6 mg/dL Total Bilirubin 0.5 0.2-1.0 mg/dL Aspartate Amino Transferase (AST) 15 13-40 U/L Alanine Aminotransferase (ALT) 17 7-40 U/L Alkaline Phosphatase 70 46-116 U/L Total Protein 7.0 5.7-8.2 g/dL Albumin 4.2 3.2-4.8 g/dL Thyroid Stimulating Hormone (TSH) 1.65 0.55-4.78 uIU/mL Urine Color Light-yellow Yellow Urine Clarity Turbid H Clear Urine pH 5.5 5.0-9.0 Urine Specific [place] 1.014 1.001-1.035 Urine Protein 1+ H Negative Urine Ketones Trace Negative Urine Blood Trace H Negative /uL Urine Nitrite Negative Negative Urine Bilirubin Negative Negative Urine Urobilinogen Normal Negative mg/dL Urine Leukocyte Esterase 2+ Negative /uL Urine RBC 2 0 - 4 /hpf Urine Microscopic WBC 6 H 0-5 /HPF Urine Squamous Epithelial Cells Few <5 /hpf Urine Bacteria Few H None Seen /hpf Urine Mucus Few None Seen Urine Yeast (Budding) Occasional None Seen /hpf Urine Glucose Normal Normal mg/dL Troponin I High Sensitivity < 3 L </=34 ng/L D-Dimer, Quantitative 0.30 0.0-0.49 mg/L FEU B-Type Natriuretic Peptide 8.94 0-100 pg/mL Microbiology Date/Time Source Procedure Growth Status 10/21/24 14:20 Voided Urine Urine Culture - Preliminary Resulted Assessment Chest pain. Palpitations. Shortness of breath. UTI. Plan/Recommendation I agree with your ongoing assessment and care of plan. Patient has been seen by Igor Peralta NP on my behalf, him and I discussed the plan with the patient. Continue aspirin and statin. Check echo. Check TSH. Continue telemetry monitoring. Continue IV antibiotics. Plan for ischemic workup with stress test Thursday. Additional plan as per the hospital course. Plan discussed with: Patient NYHA Physical activity limitations: Class2(Slight)fatigue,sob Date of Service: October 22, 2024 Billing Provider: BENJAMIN TONG MD Cardiology Common Codes: [id number] INP/OBS CARE (High) BENJAMIN TONG MD October 22, 2024 13:00
[2024-10-23] VITALS (10 sets, daily range): BP systolic 99–124; BP diastolic 59–83; PULSE 75–93; RESP 16–20; TEMP 96.6–98.4; O2SAT 94–99
--- NOTE | 2024-10-23 09:30 | DVHPN2 ---
Reviewed: Care Plan, H&P, Labs, Medications, Previous Orders, Radiology Changes from previous H/P or p: No Changes Objective Vitals Vital Signs Date Time Temp Pulse Resp B/P (MAP) Pulse Ox O2 Delivery O2 Flow Rate FiO2 10/23/24 05:00 97.5 75 18 114/74 (87) 99 97.5 10/22/24 20:00 Room Air* 0 21 Intake/Output Intake and Output 10/23/24 07:00 Intake Total 2350 ml Balance 2350 ml Intake Oral 2350 ml # Voids 4 # Bowel Movements 1 Medications Current Medications Medications Dose Ordered Sig/Blade Route Start Time Stop Time Status Last Admin Dose Admin Sodium Chloride 10 ml Q8HR IV 10/21/24 22:00 10/23/24 05:47 10 ML Ondansetron HCl 4 mg Q4HP PRN IV 10/21/24 20:45 Docusate Sodium 100 mg BIDPRN PRN PO 10/21/24 20:45 10/22/24 13:05 100 MG Enoxaparin Sodium 40 mg DAILY SC 10/22/24 10:00 Acetaminophen 650 mg Q6HP PRN PO 10/21/24 20:45 10/22/24 20:07 650 MG Nitroglycerin 0.4 mg Q5MINP PRN SL 10/21/24 20:45 Morphine Sulfate 2 mg Q30M PRN IV 10/21/24 20:45 Albuterol 2.5 mg Q6HR NEB 10/22/24 00:00 10/22/24 19:05 2.5 MG Ipratropium [place] 0.5 mg Q6HR NEB 10/22/24 00:00 10/22/24 19:05 0.5 MG Pantoprazole Sodium 40 mg DAILY IV 10/22/24 10:00 Aspirin 81 mg DAILY PO 10/22/24 10:00 10/22/24 08:55 81 MG Atorvastatin Calcium 20 mg HS PO 10/22/24 22:00 10/22/24 21:36 20 MG Laboratory Results Laboratory Tests 10/22/24 06:44 Urinalysis Test 10/21/24 14:20 Urine Color Light-yellow (Yellow) Urine Clarity Turbid (Clear) H Urine pH 5.5 (5.0-9.0) Urine Specific [place] 1.014 (1.001-1.035) Urine Protein 1+ (Negative) H Urine Ketones Trace (Negative) Urine Blood Trace /uL (Negative) H Urine Nitrite Negative (Negative) Urine Bilirubin Negative (Negative) Urine Urobilinogen Normal mg/dL (Negative) Urine Leukocyte Esterase 2+ /uL (Negative) Urine RBC 2 /hpf (0 - 4) Urine Microscopic WBC 6 /HPF (0-5) H Urine Squamous Epithelial Cells Few /hpf (<5) Urine Bacteria Few /hpf (None Seen) H Urine Mucus Few (None Seen) Urine Yeast (Budding) Occasional /hpf (None Urine Glucose Normal mg/dL (Normal) Microbiology Microbiology Date/Time Source Procedure Growth Status 10/21/24 14:20 Voided Urine Urine Culture - Preliminary Resulted Labs and/or images reviewed: Labs reviewed by me, Image(s) reviewed by me Assessment/Plan Assessment/Plan Acute chest pain, rule out acute coronary syndrome/embolism, cardiology consult by Dr. Carrillo appreciated, planning for stress test on Thursday treatment per ACS protocol Acute chest pain likely due to acute pleuritic chest pain LASHAWN likely due to VMN Acute complicated cystitis urine culture pending , continue rocephin Fibromyalgia Fatty liver Migraine Anxiety Obstructive sleep apnea on CPAP at home, being followed by . Plan discussed with: Patient Date of Service: October 23, 2024 Billing Provider: IRINA HOUSTON MD Common Visit Codes: [id number] INP/OBS CARE(HIGH) IRINA HOUSTON MD October 23, 2024 09:30
--- NOTE | 2024-10-23 10:15 | ECG ---
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
[2024-10-23] MEDS: cefTRIAXone 1GM/50ML D5W 50 ML IV ONE (10:47)
--- NOTE | 2024-10-23 11:15 | DVHPN2 ---
Consult Progress Note Subjective Patient reports: No new complaints Objective vital signs Vital Sign Date Time Temp Pulse Resp B/P (MAP) Pulse Ox O2 Delivery O2 Flow Rate FiO2 10/23/24 08:00 Room Air* 0 21 10/23/24 05:00 97.5 75 18 114/74 (87) 99 97.5 Total Intake and Output 10/22/24 10/22/24 10/23/24 15:00 23:00 07:00 Intake Total 750 ml 1600 ml Balance 750 ml 1600 ml medications Current Medications Medications Dose Ordered Sig/Blade Route Start Time Stop Time Status Last Admin Dose Admin Sodium Chloride 10 ml Q8HR IV 10/21/24 22:00 10/23/24 05:47 10 ML Ondansetron HCl 4 mg Q4HP PRN IV 10/21/24 20:45 Docusate Sodium 100 mg BIDPRN PRN PO 10/21/24 20:45 10/22/24 13:05 100 MG Enoxaparin Sodium 40 mg DAILY SC 10/22/24 10:00 Acetaminophen 650 mg Q6HP PRN PO 10/21/24 20:45 10/22/24 20:07 650 MG Nitroglycerin 0.4 mg Q5MINP PRN SL 10/21/24 20:45 Morphine Sulfate 2 mg Q30M PRN IV 10/21/24 20:45 Albuterol 2.5 mg Q6HR NEB 10/22/24 00:00 10/22/24 19:05 2.5 MG Ipratropium [place] 0.5 mg Q6HR NEB 10/22/24 00:00 10/22/24 19:05 0.5 MG Pantoprazole Sodium 40 mg DAILY IV 10/22/24 10:00 10/23/24 10:38 40 MG Aspirin 81 mg DAILY PO 10/22/24 10:00 10/23/24 10:40 81 MG Atorvastatin Calcium 20 mg HS PO 10/22/24 22:00 10/22/24 21:36 20 MG Ceftriaxone Sodium 50 ml @ 100 mls/hr DAILY@09 IV 10/24/24 09:00 Examination: CVS:Normal (Telemetry reviewed consistent with normal sinus rhythm at 79 beats per minute, no over 90 events noted.) laboratory and microbiology Laboratory Tests 10/22/24 06:44 Test 10/22/24 06:44 Range/Units Serum Glucose 102 74-106 mg/dL Problem List/Assessment/Plan Problem List/Assessment/Plan Assessment Chest pain Palpitations Shortness of breath UTI Plan/Recommendation * Continue aspirin and statin. Preserved LV and RV function on echo. No significant valvular structural abnormalities.. EKG negative for acute ischemic changes. * Check TSH. Continue telemetry monitoring. * Continue IV antibiotics. Case Discussed with Dr Carrillo . Continue telemetry monitoring. Normal EF on echo. Plan for ischemic workup with stress test Thursday. NPO after midnight This medical document was created using an electronic medical record system with voice recognition software and computerized dictation system. Although this document has been carefully reviewed, there might still be some phonetic and typographical errors. Occasional wrong-word or ``sound-alike�� substitutions may have occurred due to the inherent limitations of voice recognition software. These areas are purely typographical due to imperfections of the software programs and do not reflect any compromise in the patient's medical care. Please read the chart carefully and recognize, using context, where these substitutions have occurred. Thank you for allowing me to participate in the management of this patient. The treatment plan was discussed with and agreed upon by patient/family including requesting consultants and ordering of imaging/procedures. Plan discussed with: Patient Date of Service: October 23, 2024 Billing Provider: DEVIKA HUTCHINS Common Visit Codes: [id number] INP/OBS CARE(HIGH) DEVIKA HUTCHINS October 23, 2024 11:15
[2024-10-23] MEDS ORDERED: ALBUTEROL SULF 2.5 MG/0.5ML(0.5%) NEB SOLN NEB SCH (14:45)
[2024-10-23 20:15] LABS: Amphetamine Screen, Urine Neg (NEGATIVE); Barbiturate Scree,Urine Neg (NEGATIVE); Benzodiazephine Screen, Urine Neg (NEGATIVE); Cannabinoid Screen, Urine Neg (NEGATIVE); Cocaine Screen, Urine Neg (NEGATIVE); Opiate Scree,Urine Neg (NEGATIVE); Phencyclidine Screen, Urine Neg (NEGATIVE)
--- NOTE | 2024-10-23 21:41 | DVHPN2 ---
Consult Progress Note Subjective Patient reports: No new complaints Other Systems: Patient was seen and evaluated in follow up. Patient is complaining of chest pain. Prelim blood cultures show >100,000 CFU/mL Mixed Gram Positive [place]. >3 [place] Types. Planned for stress test Thursday. Telemetry reviewed. Objective vital signs Vital Sign Date Time Temp Pulse Resp B/P (MAP) Pulse Ox O2 Delivery O2 Flow Rate FiO2 10/23/24 09:00 97.5 82 18 120/83 (95) 94 97.5 10/23/24 08:00 Room Air* 0 21 Total Intake and Output 10/22/24 10/22/24 10/23/24 15:00 23:00 07:00 Intake Total 750 ml 1600 ml Balance 750 ml 1600 ml medications Current Medications Medications Dose Ordered Sig/Blade Route Start Time Stop Time Status Last Admin Dose Admin Sodium Chloride 10 ml Q8HR IV 10/21/24 22:00 10/23/24 05:47 10 ML Ondansetron HCl 4 mg Q4HP PRN IV 10/21/24 20:45 Docusate Sodium 100 mg BIDPRN PRN PO 10/21/24 20:45 10/22/24 13:05 100 MG Enoxaparin Sodium 40 mg DAILY SC 10/22/24 10:00 Acetaminophen 650 mg Q6HP PRN PO 10/21/24 20:45 10/22/24 20:07 650 MG Nitroglycerin 0.4 mg Q5MINP PRN SL 10/21/24 20:45 Morphine Sulfate 2 mg Q30M PRN IV 10/21/24 20:45 Albuterol 2.5 mg Q6HR NEB 10/22/24 00:00 10/22/24 19:05 2.5 MG Ipratropium [place] 0.5 mg Q6HR NEB 10/22/24 00:00 10/22/24 19:05 0.5 MG Pantoprazole Sodium 40 mg DAILY IV 10/22/24 10:00 10/23/24 10:38 40 MG Aspirin 81 mg DAILY PO 10/22/24 10:00 10/23/24 10:40 81 MG Atorvastatin Calcium 20 mg HS PO 10/22/24 22:00 10/22/24 21:36 20 MG Ceftriaxone Sodium 50 ml @ 100 mls/hr DAILY@09 IV 10/24/24 09:00 Examination: GENERAL:Normal, HEENT:Normal, NECK:Normal, LUNGS:Normal, CVS:Normal, ABDOMEN:Normal laboratory and microbiology Laboratory Tests 10/22/24 06:44 Test 10/22/24 06:44 Range/Units Serum Glucose 102 74-106 mg/dL Problem List/Assessment/Plan Problem List/Assessment/Plan Assessment Chest pain. Palpitations. Shortness of breath. UTI. Plan/Recommendation Continued all current supportive medical care. Patient has been seen by Igor Peralta MICRO COMPUTER DATA PROCESSOR on my behalf, him and I discussed the plan with the patient. Continue telemetry monitoring. Normal EF on echo. Preserved LV and RV function on echo. No significant valvular structural abnormalities. Plan for ischemic workup with stress test Thursday. NPO after midnight Continue aspirin and statin. Continue IV antibiotics. Additional plan as per the hospital course. Plan discussed with: Patient Date of Service: October 23, 2024 Billing Provider: BENJAMIN TONG MD Cardiology Common Codes: [id number] INP/OBS CARE (High) BENJAMIN TONG MD October 23, 2024 14:21
[2024-10-24] VITALS (10 sets, daily range): BP systolic 103–131; BP diastolic 52–83; PULSE 74–85; RESP 15–18; TEMP 97.5–98.8; O2SAT 96–98
[2024-10-24] MEDS: REGADENOSON 0.4 MG/5 ML SYRG IV ONE ×2 (09:25→09:34)
[2024-10-24] MEDS: ADENOSINE 78 MG in GIVE UN-DILUTED 0 ML IV ONE (09:35)
--- NOTE | 2024-10-24 09:44 | DVHPN2 ---
Reviewed: Care Plan, H&P, Labs, Medications, Previous Orders, Radiology Changes from previous H/P or p: No Changes Objective Vitals Vital Signs Date Time Temp Pulse Resp B/P (MAP) Pulse Ox O2 Delivery O2 Flow Rate FiO2 10/24/24 08:10 Room Air* 0 21 10/24/24 07:17 97 10/24/24 05:00 98.8 79 18 115/72 (86) 98.8 Intake/Output Intake and Output 10/24/24 07:00 Intake Total 2370 ml Balance 2370 ml Intake Oral 2320 ml IV Total 50 ml # Voids 6 # Bowel Movements 3 Medications Current Medications Medications Dose Ordered Sig/Blade Route Start Time Stop Time Status Last Admin Dose Admin Sodium Chloride 10 ml Q8HR IV 10/21/24 22:00 10/23/24 21:33 10 ML Ondansetron HCl 4 mg Q4HP PRN IV 10/21/24 20:45 Docusate Sodium 100 mg BIDPRN PRN PO 10/21/24 20:45 10/22/24 13:05 100 MG Enoxaparin Sodium 40 mg DAILY SC 10/22/24 10:00 Acetaminophen 650 mg Q6HP PRN PO 10/21/24 20:45 10/23/24 20:03 650 MG Nitroglycerin 0.4 mg Q5MINP PRN SL 10/21/24 20:45 Morphine Sulfate 2 mg Q30M PRN IV 10/21/24 20:45 Pantoprazole Sodium 40 mg DAILY IV 10/22/24 10:00 10/23/24 10:38 40 MG Aspirin 81 mg DAILY PO 10/22/24 10:00 10/23/24 10:40 81 MG Atorvastatin Calcium 20 mg HS PO 10/22/24 22:00 10/23/24 21:33 20 MG Ceftriaxone Sodium 50 ml @ 100 mls/hr DAILY@09 IV 10/24/24 09:00 Albuterol 2.5 mg Q6HPRN NEB 10/23/24 14:45 Ipratropium [place] 0.5 mg Q6HPRN NEB 10/23/24 14:45 Laboratory Results Laboratory Tests 10/22/24 06:44 Urinalysis Test 10/21/24 14:20 10/23/24 19:46 Urine Color Light-yellow (Yellow) Urine Clarity Turbid (Clear) H Urine pH 5.5 (5.0-9.0) Urine Specific [place] 1.014 (1.001-1.035) Urine Protein 1+ (Negative) H Urine Ketones Trace (Negative) Urine Blood Trace /uL (Negative) H Urine Nitrite Negative (Negative) Urine Bilirubin Negative (Negative) Urine Urobilinogen Normal mg/dL (Negative) Urine Leukocyte Esterase 2+ /uL (Negative) Urine RBC 2 /hpf (0 - 4) Urine Microscopic WBC 6 /HPF (0-5) H Urine Squamous Epithelial Cells Few /hpf (<5) Urine Bacteria Few /hpf (None Seen) H Urine Mucus Few (None Seen) Urine Yeast (Budding) Occasional /hpf (None Urine Glucose Normal mg/dL (Normal) Urine Test Negative (Negative) Microbiology Microbiology Date/Time Source Procedure Growth Status 10/21/24 14:20 Voided Urine Urine Culture - Preliminary Resulted Labs and/or images reviewed: Labs reviewed by me, Image(s) reviewed by me Assessment/Plan Assessment/Plan Acute chest pain, rule out acute coronary syndrome/embolism, cardiology consult by Dr. Carrillo appreciated, planning for stress test on Thursday treatment per ACS protocol Acute chest pain likely due to acute pleuritic chest pain LASHAWN likely due to VMN Acute complicated cystitis urine culture pending , continue rocephin Fibromyalgia Fatty liver Migraine Anxiety Obstructive sleep apnea on CPAP at home, being followed by . Plan discussed with: Patient Date of Service: October 24, 2024 Billing Provider: IRINA HOUSTON MD Common Visit Codes: [id number] INP/OBS CARE(HIGH) IRINA HOUSTON MD October 24, 2024 09:44
[2024-10-24] MEDS: cefTRIAXone 1GM/50ML D5W 50 ML IV SCH (11:08)
--- NOTE | 2024-10-24 15:43 | DVHSR ---
APPROVED REPORT Exam: Nuclear Stress Test Indication: Chest pain Stress Tech: Gaby Duque Ht: 5 ft 1 in Wt: 204 lbs BSA: 1.90 m2 BMI: 38.54 Medical History Medical History: MIGRAINS, FIBROMYALGIA, FATTY LIVER, HOME O2 PRN, SINUS BRADYCARDIA, OBESITY Allergies: AMOXICILIN, AZITHROMYCIN, KETOROLAC Stress Test Details Stress Test: Pharmacologic stress testing performed using 0.4 mg of regadenoson per 5 mL given IV ov er 10 seconds. Reason for pharmacologic stress test: CHEST PAIN. HR Resting HR: 86 bpmMax Heart Rate (APMHR): 173.497134 bpm Max HR Achieved: 126 bpmTarget HR (85% APMHR): 147.303317 bpm % of APMHR: 72.83 Recovery HR: 90 bpm BP Resting BP: 134/83 mmHg Recovery BP: 115/76 mmHg ECG Resting ECG: Sinus Rhythm W/ BBB Clinical Reason for Termination: Completed protocol Nurse Comments Received patient from Nuclear Medicine. Patient is A&O x4 and on RA. FOR VS please refer back to st ress test assessment documentation. Patient is connected to bus monitor. See cardio-neuro proce dural notes for addtional details. PIV flushes well. Reviewed POC and patient verbalizes understand ing and consents to test. Lexiscan stress test performed per protocol. surgery tech administered the Cardiolite. Pat ient tolerated well and vitals returned to baseline. Transferred to Nuclear Medicine via wheelchair with tech in stable condition. Stress ECG Conclusion lvef 70% normal perfusion scan no severe ischemia noted NM EXAM: Myocardial Perfusion REST/STRESS Imaging Protocol: Rest Tc-99m/Stress Tc-99m 1 day Resting Data Rest SPECT myocardial perfusion imaging was performed in supine position 60 minutes following the int ravenous injection of 10.5 mCi of Tc-99m Sestamibi. Time of rest injection: 07:55 Date: 10/24/2024 Time of rest imagin:55 Date: 10/24/2024 Administration Route: IV Administration Site: Right Arm Pharmacologic Stress Pharmacologic stress test was performed by injecting Regadenoson 0.4 mg IV push followed by the intra venous injection of 32.0 mCi of Tc-99m Sestamibi. Time of stress injection: 09:00 Date: 10/24/2024 Time of stress imagin:00 Date: 10/24/2024 Administration Route: IV Administration Site: Right Arm Gated Stress SPECT was performed 60 minutes after stress injection. The images were gated to evaluate regional wall motion and calculate left ventricular ejection fracti on. Stress only was performed in the Supine position. Nuclear Conclusion Nuclear Findings: negative for ischemia lvef 70% normal perfusion scan no severe ischemia noted
[2024-10-24] MEDS: IPRATROPIUM BROM 0.5 MG/2.5ML INH SOL NEB SCH (18:50)
[2024-10-24] MEDS ORDERED: ALBUTEROL SULF 2.5 MG/0.5ML(0.5%) NEB SOLN NEB PRN (20:45)
--- NOTE | 2024-10-24 23:58 | DVHPN2 ---
Progress Note - Dictate Date Seen: October 24, 2024 Medical Necessity Reason Pt with a Central, PICC or Fol: No Subjective Patient was seen and evaluated in follow up. No overnight events. Patient is resting in bed. Nuclear Stress Test is negative for ischemia. EF is 70%. Telemetry reviewed. vital signs Vital Sign Date Time Temp Pulse Resp B/P (MAP) Pulse Ox O2 Delivery O2 Flow Rate FiO2 10/24/24 21:00 97.5 80 18 123/52 (75) 97 97.5 10/24/24 20:55 0.0 21 10/24/24 20:00 Room Air* Total Intake and Output 10/23/24 10/23/24 10/24/24 15:00 23:00 07:00 Intake Total 50 ml 1520 ml 800 ml Balance 50 ml 1520 ml 800 ml medications Current Medications Medications Dose Ordered Sig/Blade Route Start Time Stop Time Status Last Admin Dose Admin Sodium Chloride 10 ml Q8HR IV 10/21/24 22:00 10/24/24 22:18 10 ML Ondansetron HCl 4 mg Q4HP PRN IV 10/21/24 20:45 Docusate Sodium 100 mg BIDPRN PRN PO 10/21/24 20:45 10/22/24 13:05 100 MG Enoxaparin Sodium 40 mg DAILY SC 10/22/24 10:00 Acetaminophen 650 mg Q6HP PRN PO 10/21/24 20:45 10/24/24 20:41 650 MG Nitroglycerin 0.4 mg Q5MINP PRN SL 10/21/24 20:45 Morphine Sulfate 2 mg Q30M PRN IV 10/21/24 20:45 Pantoprazole Sodium 40 mg DAILY IV 10/22/24 10:00 10/24/24 11:03 40 MG Aspirin 81 mg DAILY PO 10/22/24 10:00 10/24/24 11:08 81 MG Atorvastatin Calcium 20 mg HS PO 10/22/24 22:00 10/24/24 22:18 20 MG Ceftriaxone Sodium 50 ml @ 100 mls/hr DAILY@09 IV 10/24/24 09:00 10/24/24 11:08 100 MLS/HR Ipratropium [place] 0.5 mg Q6HPRN NEB 10/23/24 14:45 Albuterol 2.5 mg Q6HPRN PRN NEB 10/24/24 20:45 objective GENERAL: Alert and oriented x 3. No acute distress. EYES: PERRL, EOMI. Anicteric. HENT: Moist mucous membranes. LUNGS: Clear to auscultation bilaterally. CARDIOVASCULAR: Regular rate and rhythm. ABDOMEN: Soft, nontender and nondistended. EXTREMITIES: No edema. NEUROLOGIC: No focal neurological deficits. SKIN: Warm, dry. laboratory and microbiology Laboratory Tests 10/22/24 06:44 Test 10/22/24 06:44 Range/Units Serum Glucose 102 74-106 mg/dL Problem List Chest pain. Palpitations. Shortness of breath. UTI. Assessment/Plan Continued all current supportive medical care. Aspirin, Lipitor. IV antibiotics as ordered. DVT and GI prophylactics. Morphine for pain management. Additional plan as per the hospital course. Plan discussed with: Patient BENJAMIN TONG MD October 24, 2024 23:58
[2024-10-25 01:00] VITALS: BP 92/58; PULSE 73; RESP 18; TEMP 97.6; O2SAT 96
[2024-10-25 05:00] VITALS: BP 102/62; PULSE 73; RESP 18; TEMP 97.6; O2SAT 100
[2024-10-25] MEDS ORDERED: IPRATROPIUM BROM 0.5 MG/2.5ML INH SOL NEB PRN (06:00)
[2024-10-25 08:00] VITALS: PULSE 69
[2024-10-25 09:04] VITALS: BP 108/71; PULSE 82; RESP 16; TEMP 98; O2SAT 100
[2024-10-25] MEDS ORDERED: CIPR-173 PO (09:43)
[2024-10-25] MEDS ORDERED: ASPI1TAB19 PO (09:43)
[2024-10-25] MEDS ORDERED: ATOR20TA PO (09:43)
--- NOTE | 2024-10-25 09:45 | DVHPN2 ---
Reviewed: Care Plan, H&P, Labs, Medications, Previous Orders, Radiology Changes from previous H/P or p: No Changes Objective Vitals Vital Signs Date Time Temp Pulse Resp B/P (MAP) Pulse Ox O2 Delivery O2 Flow Rate FiO2 10/25/24 09:04 98.0 82 16 108/71 (83) 100 98.0 10/25/24 08:10 Room Air* 0 21 Intake/Output Intake and Output 10/25/24 07:00 Intake Total 960 ml Balance 960 ml Intake Oral 910 ml IV Total 50 ml # Voids 5 # Bowel Movements 2 Medications Current Medications Medications Dose Ordered Sig/Blade Route Start Time Stop Time Status Last Admin Dose Admin Sodium Chloride 10 ml Q8HR IV 10/21/24 22:00 10/25/24 05:35 10 ML Ondansetron HCl 4 mg Q4HP PRN IV 10/21/24 20:45 Docusate Sodium 100 mg BIDPRN PRN PO 10/21/24 20:45 10/22/24 13:05 100 MG Enoxaparin Sodium 40 mg DAILY SC 10/22/24 10:00 Acetaminophen 650 mg Q6HP PRN PO 10/21/24 20:45 10/24/24 20:41 650 MG Nitroglycerin 0.4 mg Q5MINP PRN SL 10/21/24 20:45 Morphine Sulfate 2 mg Q30M PRN IV 10/21/24 20:45 Pantoprazole Sodium 40 mg DAILY IV 10/22/24 10:00 10/24/24 11:03 40 MG Aspirin 81 mg DAILY PO 10/22/24 10:00 10/24/24 11:08 81 MG Atorvastatin Calcium 20 mg HS PO 10/22/24 22:00 10/24/24 22:18 20 MG Ceftriaxone Sodium 50 ml @ 100 mls/hr DAILY@09 IV 10/24/24 09:00 10/24/24 11:08 100 MLS/HR Albuterol 2.5 mg Q6HPRN PRN NEB 10/24/24 20:45 Ipratropium [place] 0.5 mg Q6HPRN PRN NEB 10/25/24 06:00 Laboratory Results Laboratory Tests 10/22/24 06:44 Urinalysis Test 10/21/24 14:20 10/23/24 19:46 Urine Color Light-yellow (Yellow) Urine Clarity Turbid (Clear) H Urine pH 5.5 (5.0-9.0) Urine Specific [place] 1.014 (1.001-1.035) Urine Protein 1+ (Negative) H Urine Ketones Trace (Negative) Urine Blood Trace /uL (Negative) H Urine Nitrite Negative (Negative) Urine Bilirubin Negative (Negative) Urine Urobilinogen Normal mg/dL (Negative) Urine Leukocyte Esterase 2+ /uL (Negative) Urine RBC 2 /hpf (0 - 4) Urine Microscopic WBC 6 /HPF (0-5) H Urine Squamous Epithelial Cells Few /hpf (<5) Urine Bacteria Few /hpf (None Seen) H Urine Mucus Few (None Seen) Urine Yeast (Budding) Occasional /hpf (None Urine Glucose Normal mg/dL (Normal) Urine Test Negative (Negative) Microbiology Microbiology Date/Time Source Procedure Growth Status 10/21/24 14:20 Voided Urine Urine Culture - Final Complete Labs and/or images reviewed: Labs reviewed by me, Image(s) reviewed by me Assessment/Plan Assessment/Plan Noncardiac chest pain, cardiology consult by Dr. Carrillo appreciated, Cardiolite stress test negative Acute chest pain likely due to acute pleuritic chest pain LASHAWN likely due to VMN Acute complicated cystitis urine culture mixed , treated with rocephin Fibromyalgia Fatty liver Migraine Anxiety Obstructive sleep apnea on CPAP at home, being followed by . Cleared For discharge by case packer Plan discussed with: Patient My Orders Orders - IRINA HOUSTON MD Procedure Category Date Status Time * [place] Opener CONS 10/24/24 Transmitted Consult Date of Service: October 25, 2024 Billing Provider: IRINA HOUSTON MD Common Visit Codes: [id number] INP/OBS CARE(HIGH) IRINA HOUSTON MD October 25, 2024 09:45
--- NOTE | 2024-10-25 09:48 | DVHDS2 ---
Discharge Summary Date of Admission October 21, 2024 at 20:33 Date of Discharge: October 25, 2024 Admitting Diagnosis Chest pain Wounds: None Labs/Diagnostic Data: Laboratory Results Test 10/23/24 19:46 10/22/24 06:44 10/21/24 14:20 10/21/24 12:53 Urine Test Negative (Negative) Urine Opiates Screen Neg (NEGATIVE) Urine Fentanyl Screen Neg (NEGATIVE) Urine Barbiturates Screen Neg (NEGATIVE) Urine Phencyclidine Screen Neg (NEGATIVE) Urine Amphetamines Screen Neg (NEGATIVE) Urine Benzodiazepines Screen Neg (NEGATIVE) Urine Cocaine Screen Neg (NEGATIVE) Urine Cannabinoids Screen Neg (NEGATIVE) White Blood Count 6.4 10^3/uL (4.4-10.8) Red Blood Count 5.18 10^6/uL (4.0-5.20) Hemoglobin 13.7 g/dL (12.2-16.2) Hematocrit 41.1 % (36.0-46.0) Mean Corpuscular Volume 79.5 fL (80.0-100.0) Mean Corpuscular Hemoglobin 26.4 pg (28.0-32.0) Mean Corpuscular Hemoglobin Concent 33.2 g/dL (32.0-36.0) Red Cell Distribution Width 17.4 % (11.8-14.3) Platelet Count 301 10^3/uL (140-450) Mean Platelet Volume 8.2 fL (6.9-10.8) Neutrophils (%) (Auto) 65.9 % (37.0-80.0) Lymphocytes (%) (Auto) 23.2 % (10.0-50.0) Monocytes (%) (Auto) 7.0 % (0.0-12.0) Eosinophils (%) (Auto) 3.3 % (0.0-7.0) Basophils (%) (Auto) 0.6 % (0.0-2.0) Neutrophils # (Auto) 4.2 10 ^3/uL (1.6-8.6) Lymphocytes # (Auto) 1.5 10 ^3/uL (0.4-5.4) Monocytes # (Auto) 0.4 10 ^3/uL (0-1.3) Eosinophils # (Auto) 0.2 10 ^3/uL (0-0.8) Basophils # (Auto) 0 10 ^3/uL (0-0.2) Nucleated Red Blood Cells 0.1 % Sodium Level 140 mmol/L (136-145) Potassium Level 4.0 mmol/L (3.5-5.1) Chloride Level 105 mmol/L (98-107) Carbon Dioxide Level 28 mmol/L (20-31) Anion Gap 7 (5-15) Blood Urea Nitrogen 15 mg/dL (9-23) Creatinine 1.12 mg/dL (0.550-1.02) Glomerular Filtration Rate Calc 61 mL/min (>90) BUN/Creatinine Ratio 13.4 (10.0-20.0) Serum Glucose 102 mg/dL (74-106) Hemoglobin A1c 5.8 % A1C (<5.7) Calcium Level 9.9 mg/dL (8.7-10.4) Magnesium Level 2.0 mg/dL (1.6-2.6) Total Bilirubin 0.5 mg/dL (0.2-1.0) Aspartate Amino Transferase (AST) 15 U/L (13-40) Alanine Aminotransferase (ALT) 17 U/L (7-40) Alkaline Phosphatase 70 U/L (46-116) Total Protein 7.0 g/dL (5.7-8.2) Albumin 4.2 g/dL (3.2-4.8) Thyroid Stimulating Hormone (TSH) 1.65 uIU/mL (0.55-4.78) Free Thyroxine (T4) Calculated 1.08 ng/dL (0.89-1.76) Urine Color Light-yellow (Yellow) Urine Clarity Turbid (Clear) Urine pH 5.5 (5.0-9.0) Urine Specific [place] 1.014 (1.001-1.035) Urine Protein 1+ (Negative) Urine Ketones Trace (Negative) Urine Blood Trace /uL (Negative) Urine Nitrite Negative (Negative) Urine Bilirubin Negative (Negative) Urine Urobilinogen Normal mg/dL (Negative) Urine Leukocyte Esterase 2+ /uL (Negative) Urine RBC 2 /hpf (0 - 4) Urine Microscopic WBC 6 /HPF (0-5) Urine Squamous Epithelial Cells Few /hpf (<5) Urine Bacteria Few /hpf (None Seen) Urine Mucus Few (None Seen) Urine Yeast (Budding) Occasional /hpf (None Urine Glucose Normal mg/dL (Normal) Troponin I High Sensitivity < 3 ng/L (</=34) Test 10/21/24 11:22 D-Dimer, Quantitative 0.30 mg/L FEU (0.0-0.49) B-Type Natriuretic Peptide 8.94 pg/mL (0-100) Other Laboratory Tests 10/22/24 06:44 Brief Hx & Hospital Course: 48-year-old female with a history of fatty liver migraine anxiety obstructive sleep apnea on CPAP at home came in complaining of chest pain troponin negative x3. 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 Francis Carrillo who cleared for discharge. Patient had UTI treated with Rocephin being prescribed Cipro discharged home on aspirin and Lipitor. She will follow up with the primary Dr. patient is asymptomatic with a stable vital signs at the time of discharge and requesting to go home. Consults/Reason for consult Cardiology Dr. Francis Carrillo Operations or Procedures Cardiolite stress test Condition at Discharge: Fair Final Diagnosis/Problems List Noncardiac chest pain, cardiology consult by Dr. Carrillo appreciated, Cardiolite stress test negative Acute chest pain likely due to acute pleuritic chest pain LASHAWN likely due to VMN Acute complicated cystitis urine culture mixed , treated with rocephin Fibromyalgia Fatty liver Migraine Anxiety Obstructive sleep apnea on CPAP at home, being followed by . Discharge Disposition: Home Discharge Instruct/Medications Diet: Cardiac 2g Na,low cholest Activity: Light activity Follow Up/Referral: Follow up with the primary Resume all previous home meds Medications: Aspirin Lipitor Cipro Transmitted to pharmacy 35 (Time taken for discharge summary 35 minutes) Discharge Statement: "Patient was advised to return to the ER or call 911 if any headaches, dizziness, shortness of breath, chest pain, abdominal pain, bleeding, fevers, or worsening of medical condition. Patient was counseled about treatment plan, medications, possible side effects, patient�verbalized understanding. All questions were answered to the best of my ability. This discharge took greater then 30 minutes in planning, reviewing documentation, counseling the patient, and discussing with other team members." ASSESSMENT ASSESSMENT Hospital Course Uneventful Assessment Noncardiac chest pain, cardiology consult by Dr. Carrillo appreciated, Cardiolite stress test negative Acute chest pain likely due to acute pleuritic chest pain LASHAWN likely due to VMN Acute complicated cystitis urine culture mixed , treated with rocephin Fibromyalgia Fatty liver Migraine Anxiety Obstructive sleep apnea on CPAP at home, being followed by . Date of Service: October 25, 2024 Billing Provider: IRINA HOUSTON MD Common Visit Codes: 21355-YBN/OBS DISCH DAY >30min IRINA HOUSTON MD October 25, 2024 09:48
[2024-10-25 10:38] VITALS: O2SAT 97
[2024-10-25 10:45] VITALS: BP 108/71; PULSE 82; RESP 16; TEMP 98; O2SAT 100
--- NOTE | 2024-10-25 21:48 | DVHPN2 ---
Progress Note - Dictate Date Seen: October 25, 2024 Medical Necessity Reason Pt with a Central, PICC or Fol: No Subjective Patient was seen and evaluated in follow up. Patient has no new complaints at this time. Patient denies any cardiac symptoms. Patient is cardiac stable for discharge. Telemetry reviewed. vital signs Vital Sign Date Time Temp Pulse Resp B/P (MAP) Pulse Ox O2 Delivery O2 Flow Rate FiO2 10/25/24 10:45 98.0 82 16 100 10/25/24 10:38 Room Air 0.0 10/25/24 10:38 21 10/25/24 09:04 108/71 (83) Total Intake and Output 10/24/24 10/24/24 10/25/24 15:00 23:00 07:00 Intake Total 50 ml 450 ml 460 ml Balance 50 ml 450 ml 460 ml objective GENERAL: Alert and oriented x 3. No acute distress. EYES: PERRL, EOMI. Anicteric. HENT: Moist mucous membranes. LUNGS: Clear to auscultation bilaterally. CARDIOVASCULAR: Regular rate and rhythm. ABDOMEN: Soft, nontender and nondistended. EXTREMITIES: No edema. NEUROLOGIC: No focal neurological deficits. SKIN: Warm, dry. laboratory and microbiology Laboratory Tests 10/22/24 06:44 Test 10/22/24 06:44 Range/Units Serum Glucose 102 74-106 mg/dL Problem List Chest pain. Palpitations. Shortness of breath. UTI. Assessment/Plan Continued all current supportive medical care. Aspirin, Lipitor. IV antibiotics as ordered. DVT and GI prophylactics. Morphine for pain management. Additional plan as per the hospital course. Plan discussed with: Patient BENJAMIN TONG MD October 25, 2024 21:48
== END 2024-10-25 11:38 | disposition home or self-care (01) | DRG 313 ==
LOC: EDBD 11:02 → ER 11:02 → OVERFLOW 20:33 → TELE-EAST 22:52
PROVIDERS: ADMIT Family Medicine; ATTEND Family Medicine
DX: R07.89 Other chest pain (principal); N17.0 Acute kidney failure with tubular necrosis; I24.9 Acute ischemic heart disease, unspecified; N30.00 Acute cystitis without hematuria; E86.0 Dehydration; G47.33 Obstructive sleep apnea (adult) (pediatric); G43.909 Migraine, unspecified, not intractable, without status migrainosus; K21.9 Gastro-esophageal reflux disease without esophagitis; M79.7 Fibromyalgia; F41.9 Anxiety disorder, unspecified; K76.0 Fatty (change of) liver, not elsewhere classified; Z88.0 Allergy status to penicillin; Z88.1 Allergy status to other antibiotic agents; Z90.49 Acquired absence of other specified parts of digestive tract; Z98.51 Tubal ligation status; Z83.3 Family history of diabetes mellitus; Z82.49 Family history of ischemic heart disease and other diseases of the circulatory system
CPT/HCPCS: 36415; 71045; 78452; 80048; 80053; 80307; 81001; 81025; 83036; 83735; 83880; 84439; 84443; 84484; 85025; 85379; 87086; 93005; 93017; 93306; 94640; 96365; 96375; G0378; J0153; J2470

== ENCOUNTER 2024-12-27 11:37 | Emergency (ER) | payer OTHER ==
[~2024-12-27] VITALS: Ht 154.9 cm; Wt 76.9 kg
[~2024-12-27 11:37] MED LIST changes: +ASPI1TAB19 PO; +ATOR20TA PO; +CIPR-173 PO; +PANT40TA2 PO; +SUMA1SPR2
[2024-12-27 12:30] VITALS: TEMP 98.6
--- NOTE | 2024-12-27 13:37 | ED.PDOC ---
GI ASSESSMENT HPI Comments 49 y/o F, with PMHx of anemia presents to the ED for CC of nausea/vomiting. Patient states, that she has been experiencing nausea and vomiting onset, this morning (12/27/24). Patient relays, associated symptoms of faintness, headache, dizziness, and neck stiffness. Patient comments, that she recently took Semaglutide 0.25mg on (12/22/24) and is unsure if symptoms are related. Patient denies fatigue, weakness, numbness, or blurred vision. No other symptoms or modifying factors present at this time. Chief Complaint: Nausea/Vomiting Time Seen by MD: 13:15 Primary Care Provider: DR KONG Reviewed Notes: Nurses Notes, Medications, Allergies Allergies: Coded Allergies: Amoxicillin (Verified Allergy, Unknown, 04/14/23) Azithromycin (Verified Allergy, Unknown, 12/31/23) Ketorolac Tromethamine (Verified Allergy, Unknown, 04/14/23) Home Meds Active Scripts Ciprofloxacin Hcl (Cipro) 500 Mg Tab, 1 TAB PO BID, #20 TAB Prov:IRINA HOUSTON MD 10/25/24 Atorvastatin Calcium (Lipitor) 20 Mg Tab, 1 TAB PO DAILY, #90 TAB 1 Refill Prov:IRINA HOSUTON MD 10/25/24 Aspirin (Aspirin) 81 Mg Tab, 81 MG PO DAILY, #90 TAB Prov:IRINA HOUSTON MD 10/25/24 Tramadol HCl (Tramadol HCl) 50 Mg Tab, 50 MG PO TID, #20 TAB Prov:JESSICA URIAS 10/23/23 Sulfamethoxazole W/Trimethopri (Bactrim Ds Tablet) 1 Tab Tb, 1 TAB PO BID for 10 Days, #20 TAB Prov:JESSICA URIAS 10/23/23 Nitrofurantoin Monohydrate Mac (Macrobid) 100 Mg Cap, 100 MG PO BID for 7 Days, #14 CAP Prov:HERO JACOBO MD 05/21/23 Epinephrine (Epinephrine) 0.3 Mg/0.3 Ml Inj, 0.3 MG IJ ONCE PRN, #2 INJ 0 Refills Prov:BERLIN ARECHIGA MD 10/30/21 Cyclobenzaprine Hcl (Cyclobenzaprine Hcl) 5 Mg Tab, 1 TAB PO QPM, #14 TAB 0 R efills Prov:JOSE ALEJANDRO PARADA 08/28/21 Reported Medications Pantoprazole Sodium Sesquihydr (Protonix) 40 Mg Tab, 40 MG PO DAILY, #30 TAB 10/22/24 Sumatriptan Base (Sumatriptan) 20 Mg/Act Spr, 20 MG NA, SPRAY 10/22/24 Information Source: Patient Mode of Arrival: Ambulatory Timing: Hours Duration: Since onset Prehospital treatment: None Vomitus: Watery Stool: Watery Severity: Moderate Recent: None Recent Hx of: None Pain Location: None Modifying Factors: Nothing Associated sign and symptoms: Nausea, Vomiting Past Medical History PAST MEDICAL HISTORY: Anemia, Anxiety, GERD Surgical History: BTL, Cholecystectomy, Tonsillectomy, 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 GENERATING History: No Pertinent SUPERVISOR LENS GENERATING History Family History Family History: Reviewed,noncontributory to illness, Family hx of Cancer, Family hx of heart gunnar Social History Smoker: Non-Smoker Alcohol: Denies ETOH Use Drugs: Denies Drug Use Lives In: Home Constitutional: denies: chills, diaphoresis, fatigue, fever, malaise, sweats, weakness, others EENTM: denies: blurred vision, double vision, ear bleeding, ear discharge, ear drainage, ear pain, ear ringing, eye pain, eye redness, hearing loss, mouth pain, mouth swelling, nasal discharge, nose bleeding, nose congestion, nose pain, photophobia, tearing, throat pain, throat swelling, voice changes, others Respiratory: denies: cough, hemoptysis, orthopnea, SOB at rest, shortness of breath, SOB with excertion, stridor, wheezing, others Cardiovascular: denies: chest pain, dizzy spells, diaphoresis, Dyspnea on exertion, edema, irregular heart beat, left arm pain, lightheadedness, palpitations, PND, syncope, others Gastrointestinal: reports: abdominal pain, nausea, vomiting; denies: abdomen distended, blood streaked bowels, constipated, diarrhea, dysphagia, difficulty swallowing, hematemesis, melena, poor appetite, poor fluid intake, rectal bleeding, rectal pain, others Genitourinary: denies: abnormal vagina bleeding, burning, dyspareunia, dysuria, flank pain, frequency, hematuria, incontinence, pain, , vagina discharge, urgency, others Neurological: reports: dizziness, headache; denies: fainting, left sided numbness, left sided weakness, numbness, paresthesia, pre-existing deficit, right sided numbness, right sided weakness, seizure, speech problems, tingling, tremors, weakness, others Musculoskeletal: denies: back pain, gout, joint pain, joint swelling, muscle pain, muscle stiffness, neck pain, others Integumetry: denies: bruises, change in color, change in hair/nails, dryness, laceration, lesions, lumps, rash, wounds, others Allergic/Immunocompromised: denies: Difficulty Healing, Frequent Infections, Hives, Itching, others Hematologic/Lymphatic: denies: anemia, blood clots, easy bleeding, easy bruising, swollen glands, others Endocrine: denies: excessive hunger, excessive sweating, excessive thirst, excessive urination, flushing, intolerance to cold, intolerance to heat, unexplained weight gain, unexplained weight loss, others Psychiatric: denies: anxiety, bipolar disorder, depression, hopeless, panic disorder, schizophrenia, sleepless, suicidal, others All Other Systems: Reviewed and Negative Physical Exam General Appearance: No Apparent Distress, Normal HEENT: Normal ENT Inspection, Pharynx Normal, TMs Normal Neck: Full Range of Motion, Non-Tender, Normal, Normal Inspection Respiratory: Chest Non-Tender, Lungs Clear, No Accessory Muscle Use, No Respiratory Distress, Normal Breath Sounds Cardiovascular: No Edema, No JVD, No Murmur, No Gallop, Normal Peripheral Pulses, Regular Rate/Rhythm Breast Exam: Deferred Gastrointestinal: No Organomegaly, Non Tender, No Pulsatile Mass, Normal Bowel Sounds, Soft Genitalia: Deferred Pelvic: Deferred Rectal: Deferred Extremities: No calf tenderness, Normal capillary refill, Normal inspection, Normal range of motion, Non-tender, No pedal edema Musculoskeletal : Apperance: Normal Neurologic: Alert, barkeeper II-XII nml as Tested, No Motor Deficits, Normal Affect, Normal Mood, No Sensory Deficits Cerebellar Function: Normal Reflexes: Normal Skin: Dry, Normal Color, Warm Lymphatic: No Adenopathy Was a procedure done? Was a procedure done?: No GI differential Dx Differential Diagnosis: Gastritis/PUD, Gastroenteritis, Diabetes/ DKA, Drug toxicity, Electrolyte Imbalance, Food Poisoning, Bacterial, Viral X-Ray, Labs, Meds, VS Vital Signs Date Time Temp Pulse Resp B/P (MAP) Pulse Ox O2 Delivery O2 Flow Rate FiO2 12/27/24 12:38 82 12/27/24 12:30 98.6 78 16 128/87 (101) 96 98.6 Lab Test 12/27/24 13:47 12/27/24 12:32 Range/Units White Blood Count 9.1 4.4-10.8 10^3/uL Red Blood Count 5.68 H 4.0-5.20 10^6/uL Hemoglobin 14.4 12.2-16.2 g/dL Hematocrit 44.5 36.0-46.0 % Mean Corpuscular Volume 78.3 L 80.0-100.0 fL Mean Corpuscular Hemoglobin 25.4 L 28.0-32.0 pg Mean Corpuscular Hemoglobin Concent 32.5 32.0-36.0 g/dL Red Cell Distribution Width 16.0 H 11.8-14.3 % Platelet Count 373 140-450 10^3/uL Mean Platelet Volume 8.4 6.9-10.8 fL Neutrophils (%) (Auto) 67.4 37.0-80.0 % Lymphocytes (%) (Auto) 25.0 10.0-50.0 % Monocytes (%) (Auto) 5.0 0.0-12.0 % Eosinophils (%) (Auto) 2.1 0.0-7.0 % Basophils (%) (Auto) 0.5 0.0-2.0 % Neutrophils # (Auto) 6.1 1.6-8.6 10 ^3/uL Lymphocytes # (Auto) 2.3 0.4-5.4 10 ^3/uL Monocytes # (Auto) 0.5 0-1.3 10 ^3/uL Eosinophils # (Auto) 0.2 0-0.8 10 ^3/uL Basophils # (Auto) 0 0-0.2 10 ^3/uL Nucleated Red Blood Cells 0.1 % Sodium Level 141 136-145 mmol/L Potassium Level 3.9 3.5-5.1 mmol/L Chloride Level 107 98-107 mmol/L Carbon Dioxide Level 24 20-31 mmol/L Anion Gap 10 5-15 Blood Urea Nitrogen 14 9-23 mg/dL Creatinine 1.44 H 0.550-1.02 mg/dL Glomerular Filtration Rate Calc 45 >90 mL/min BUN/Creatinine Ratio 9.7 L 10.0-20.0 Serum Glucose 92 74-106 mg/dL Calcium Level 10.0 8.7-10.4 mg/dL POC Glucose 93 70-106 mg/dl Current Medications Medications (Trade) Dose Ordered Sig/Blade Route Start Time Stop Time Status Last Admin Sodium Chloride 1,000 ml @ 1,000 mls/hr Q1H ONCE IV 12/27/24 13:15 12/27/24 14:14 DC 12/27/24 15:46 Time of 1ST Reevaluation: 13:45 Reevaluation 1ST: Unchanged Patient Education/Counseling: Diagnosis, Treatment Family Education/Counseling: No Family Present SEPSIS Sepsis Screen Date sepsis recognized/suspect: Dec 27, 2024 Time Sepsis recognized/suspect: 1229 Recent Procedure: No On Antibiotic Therapy: No Respiratory Rate >20: No Heart Rate >90: No Temp<36 C (96.8 F) or >38.3 C: No SBP <90 or MAP <65 mmHG: No New Acute Mental Status Change: No Is the patient on CPAP, BIPAP,: No Physician Orders Urinalysis (12/27/24 13:02) Electrocardigram (12/27/24 13:31) Chest Portable (12/27/24 15:10) Vital Signs Date Time Temp Pulse Resp B/P (MAP) Pulse Ox O2 Delivery O2 Flow Rate FiO2 12/27/24 12:38 82 12/27/24 12:30 98.6 78 16 128/87 (101) 96 98.6 Laboratory Tests Test 12/27/24 13:47 White Blood Count 9.1 10^3/uL (4.4-10.8) Medications Medications Dose Ordered Sig/Blade Route Start Time Stop Time Status Last Admin Dose Admin Sodium Chloride 1,000 ml @ 1,000 mls/hr Q1H ONCE IV 12/27/24 13:15 12/27/24 14:14 DC 12/27/24 15:46 Departure 1 Departure Time of Disposition: 16:02 (Patient likely with a viral syndrome. Patient's workup is benign. We will discharge patient home with outpatient follow up) Impression: Primary Impression: Viral syndrome Disposition: 01 HOME / SELF CARE / HOMELESS Condition: Stable Additional Instructions: You likely have a viral illness. It is important to stay well rested and well hydrated. You can take Tylenol and Motrin as needed for pain and fever. For a sore throat you can drink warm tea with honey. You can take [id number] pseudoephedrine for nasal congestion. He should follow up with your regular doctor within 1 week to ensure you are doing better. If your symptoms worsen or you have any other concerns please return to the emergency room. Discharged With: Self Critical Care Note Critical Care Time?: No Stability Stability form required: No Heart Score Heart Score: Heart Score Response (Comments) Value History N/A 0 EKG N/A 0 Age N/A 0 Risk Factors N/A 0 Troponin N/A 0 Total 0 I personally scribed for RICHARD STONE MD ([email or web address]) on 12/27/24 at 13:37. Electronically submitted by Shira Wharton [email or web address]). RICHARD STONE MD Dec 27, 2024 13:37 SANKET GALEANA MD Dec 27, 2024 16:04
[2024-12-27 14:13] LABS: Hemoglobin 14.4 g/dL (12.2-16.2); Mean Corpuscular Volume 78.3 fL (80.0-100.0); Nucleated Red Blood Cells % 0.1 %
[2024-12-27 14:14] LABS: Hematocrit 44.5 % (36.0-46.0); Mean Corpuscular Hemoglobin 25.4 pg (28.0-32.0)
[2024-12-27 14:26] LABS: Potassium 3.9 mmol/L (3.5-5.1); Sodium 141 mmol/L (136-145)
[2024-12-27 14:27] LABS: Anion Gap 10 (5-15); Calcium 10.0 mg/dL (8.7-10.4); Carbon Dioxide 24 mmol/L (20-31)
[2024-12-27 14:32] LABS: BUN/Creatinine Ratio 9.7 (10.0-20.0); Blood Urea Nitrogen 14 mg/dL (9-23); Glucose 92 mg/dL (74-106)
[2024-12-27 14:33] LABS: Chloride 107 mmol/L (98-107)
[2024-12-27] MEDS: ONDANSETRON HCL 4 MG/2 ML VIAL IV ONE (15:44)
[2024-12-27] MEDS: FAMOTIDINE (10MG/ML) 2ML VL IV ONE (15:45)
[2024-12-27] MEDS: SODIUM CHLORIDE 0.9% 1,000 ML IV ONE (15:46)
[2024-12-27 16:22] LABS: Urine Protein, UAD 1+ (Negative)
--- NOTE | 2024-12-27 16:31 | DVH ---
CHEST RADIOGRAPH Indication: chest pain Technique: Single frontal view of the chest was obtained Comparison: XY CHEST PORTABLE on DOS: 10/21/24, XY CHEST PORTABLE on DOS: 05/01/24, XY CHEST PORTABLE o n DOS: 12/31/23 FINDINGS: Lines and Tubes: None Lungs: No focal consolidation. Pleura: No effusion. No pneumothorax. Cardiomediastinal contours: Unremarkable Bones: No acute osseous abnormality. IMPRESSION: 1. No acute cardiopulmonary disease.
[2024-12-27 16:35] VITALS: BP 122/82; PULSE 82; RESP 16; O2SAT 95
--- NOTE | 2024-12-28 09:34 | ECG ---
[facility] Test Date: 2024-12-27 Test Time: 12:38:19 Pat Name: VIVIANA HANLEY Department: ER Room: Gender: F Tassel Snipper: WESTLEY : 1975 Requested By: SANKET GALEANA Order Number: [id number] Reading MD: Measurements Intervals [place] Rate: 82 P: 0 TN: 147 QRS: 89 QRSD: 85 T: -3 QT: 371 QTc: 434 Interpretive Statements Sinus rhythm Inferior infarct, age indeterminate Please click the below link to view image of tracing.
== END 2024-12-27 17:18 | disposition home or self-care (01) ==
LOC: ER 11:37
DX: B34.9 Viral infection, unspecified (principal); R11.2 Nausea with vomiting, unspecified; F41.9 Anxiety disorder, unspecified; Z98.51 Tubal ligation status; Z90.49 Acquired absence of other specified parts of digestive tract; Z90.89 Acquired absence of other organs; Z88.1 Allergy status to other antibiotic agents; Z88.0 Allergy status to penicillin; Z79.899 Other long term (current) drug therapy
CPT/HCPCS: 36415; 71045; 80048; 81001; 82947; 85025; 93005; 96360; 96361; 99285; J7030; 82962